=== PATIENT | female | born 1950 | race Caucasian/White ===

== ENCOUNTER 2019-12-09 14:15 | Outpatient (CLI) | payer MEDICARE, SELFPAY ==
--- NOTE | ~2019-12-09 | MM_ITS ---
EXAMINATION: MM screening corrina BI w karen HISTORY: Screening mammogram, family history of breast cancer in her mother. TECHNIQUE: Craniocaudal and mediolateral oblique 3-D tomosynthesis images were obtained and synthetic 2-D images were generated. CAD analysis was submitted and interpreted. COMPARISON: 12/13/2018, 12/10/2018, 11/13/2017 BREAST PARENCHYMAL COMPOSITION: There are scattered areas of fibroglandular density. FINDINGS: There is no evidence of suspicious mass, calcification, or architectural distortion to sugg est malignancy in either breast. There has been no suspicious interval change. IMPRESSION: 1. No mammographic evidence of malignancy. 2. Recommend routine screening mammography in one year. BI-RADS Category 1: Negative Reviewed, dictated and finalized at location A. [facility] [employer]
== END 2019-12-09 14:16 | disposition home or self-care (01) ==
LOC: ANHIMG 14:28
PROVIDERS: PCP Family Medicine; Visit Provider Nurse Practitioner Family
DX: Z12.31 Encounter for screening mammogram for malignant neoplasm of breast (principal)
CPT/HCPCS: 77063; 77067

== ENCOUNTER → 2021-02-21 11:06 | Outpatient (CLI) | payer MEDICARE, SELFPAY ==
--- NOTE | ~2021-02-21 | DEXA_ITS ---
Bone Density Report Name: Evelyn Courtney Age: 71 Sex: Female Ethnicity: White Date of : 1950 Indication: postmenopausal; screening for osteoporosis; hysterectomy; Referring Provider: Maryam Marcum Study: Bone densitometry was performed. Exam Date: February 21, 2021 Accession number: [id number] Bone Density: Region BMD T-score Z-score Classification AP Spine (L1-L4) 0.914 -1.2 0.8 Osteopenia Femoral Neck (Left) 0.706 -1.3 0.5 Osteopenia Total Hip (Left) 0.832 -0.9 0.6 Normal Femoral Neck (Right) 0.695 -1.4 0.4 Osteopenia Total Hip (Right) 0.822 -1.0 0.5 Normal Total Hip Mean 0.827 -1.0 0.6 Normal World Health Organization criteria for BMD impression classify patients as: Normal (T-score at or above -1.0), Osteopenia (T-score between -1.0 and -2.5), or Osteoporosis (T-score at or below -2.5). 10-year Fracture Risk(1): Major Osteoporotic Fracture 9.7% Hip Fracture 1.2% Reported Risk Factors: [place] (), Neck BMD=0.695, BMI=25.7 (1) FRAX(R) Version 3.08. Fracture probability calculated for an untreated patient. Fracture probability may be lower if the patient has received treatment. Previous Exams: Region Exam Age BMD T-score BMD Change BMD Change Date g/cm2 vs Baseline vs Previous AP Spine(L1-L4) 02/21/2021 71 0.914 -1.2 -0.033* -0.033* 01/10/2017 66 0.947 -0.9 Total Hip(Left) 02/21/2021 71 0.832 -0.9 -0.009 -0.009 01/10/2017 66 0.842 -0.8 Total Hip(Right) 02/21/2021 71 0.822 -1.0 -0.014 -0.014 01/10/2017 66 0.836 -0.9 *Denotes significance at 95% confidence level, LSC for AP Spine = 0.022 g/cm2, LSC for Total Hip = 0.027 g/cm2 Clinical Information Provided by Patient: Has used the following medications: Vitamin D, Calcium Has the following medical conditions: Hysterectomy Patient maximum height was 67 Menopause Age: 39 No regular weight bearing exercise Does not regularly consume dairy products Onset of menses at age 15 Number of children 3 Impression: The patient has low bone mass, based on the Right Femoral Neck T-score. The patient has an estimated ten-year risk of hip fracture of 1.2% and an estimated ten-year risk of major fracture of 9.7%, based on the WHO FRAX algorithm. The BMD for the AP Spine(L1-L4) decreased, changing by -0.033 since the last DXA exam. Discussion: BONE DENSITY IS LOW AT ONE OR MORE SKELETAL SITES. This p
--- NOTE | ~2021-02-21 | MM_ITS ---
EXAMINATION: MM screening corrina BI w karen HISTORY: Screening TECHNIQUE: Craniocaudal and mediolateral oblique 3-D tomosynthesis images were obtained and synthetic 2-D images were generated. CAD analysis was submitted and interpreted. COMPARISON: Comparison to multiple prior studies sequentially, with oldest reviewed study dated 12/2017. BREAST PARENCHYMAL COMPOSITION: The breasts are heterogenously dense, which may obscure small masses. FINDINGS: There is no evidence of suspicious mass, calcification, or architectural distortion to sugg est malignancy in either breast. There has been no suspicious interval change. IMPRESSION: 1. No mammographic evidence of malignancy. 2. Recommend routine screening mammography in one year. BI-RADS Category 1: Negative Reviewed, dictated and finalized at location A.
== END ==
PROVIDERS: PCP Family Medicine; Visit Provider Physician Assistant
DX: Z12.31 Encounter for screening mammogram for malignant neoplasm of breast (principal); Z78.0 Asymptomatic menopausal state; M85.88 Other specified disorders of bone density and structure, other site; M85.852 Other specified disorders of bone density and structure, left thigh; M85.851 Other specified disorders of bone density and structure, right thigh
CPT/HCPCS: 77063; 77067; 77080

== ENCOUNTER 2022-04-08 10:30 | Outpatient (CLI) | payer MEDICARE, SELFPAY ==
--- NOTE | ~2022-04-08 | MM_ITS ---
EXAMINATION: MM screening corrina BI w kaern HISTORY: Screening TECHNIQUE: Craniocaudal and mediolateral oblique 3-D tomosynthesis images were obtained and synthetic 2-D images were generated. CAD analysis was submitted and interpreted. COMPARISON: Comparison to multiple prior studies sequentially, with oldest reviewed study dated 12/2017. BREAST PARENCHYMAL COMPOSITION: The breasts are heterogenously dense, which may obscure small masses FINDINGS: There are new focal asymmetries in the upper outer quadrant of the right breast. The left b reast is stable without evidence for malignancy. IMPRESSION: 1. Developing right breast asymmetries, upper outer quadrant. 2. Additional mammographic views and possible breast ultrasound are recommended. BI-RADS Category 0: Incomplete: Needs additional imaging evaluation. Reviewed, dictated and finalized at location A. IMPRESSION: 1. Developing right breast asymmetries, upper outer quadrant. 2. Additional mammographic views and possible breast ultrasound are recommended . BI-RADS Category 0: Incomplete: Needs additional imaging evaluation.
== END 2022-04-08 10:31 | disposition home or self-care (01) ==
LOC: ANHIMG 10:34
PROVIDERS: PCP Family Medicine; Visit Provider Family Medicine
DX: Z12.31 Encounter for screening mammogram for malignant neoplasm of breast (principal); R92.8 Other abnormal and inconclusive findings on diagnostic imaging of breast
CPT/HCPCS: 77063; 77067

== ENCOUNTER → 2022-05-22 09:11 | Outpatient (CLI) | payer MEDICARE, SELFPAY ==
--- NOTE | ~2022-05-22 | MM_ITS ---
EXAMINATION: MM diagnostic corrina RT w karen HISTORY: Right breast asymmetries on screening mammogram TECHNIQUE: Additional 3-D tomosynthesis images of the right breast were performed and synthetic 2-D i mages were generated. CAD analysis was submitted and interpreted. COMPARISON: 04/08/2022, 02/21/2021, 12/09/2019 BREAST PARENCHYMAL COMPOSITION: The breast is heterogeneously dense, which may obscure small masses. FINDINGS: There is a return to baseline fibroglandular appearance with spot compression of the right breast in the area questioned on screening mammogram. IMPRESSION: 1. No mammographic evidence of malignancy. 2. Recommend routine screening mammography in one year. BI-RADS Category 1: Negative Reviewed, dictated and finalized at location A.
== END ==
PROVIDERS: PCP Family Medicine; Visit Provider Family Medicine
DX: R92.8 Other abnormal and inconclusive findings on diagnostic imaging of breast (principal)
CPT/HCPCS: 77061; 77065; G0279

== ENCOUNTER 2023-04-12 08:29 | Outpatient (CLI) | payer MEDICARE, SELFPAY ==
--- NOTE | ~2023-04-12 | CT_ITS ---
Non-contrast CT scan of the Abdomen and Pelvis Clinical indication: Kidney stone Technique: 2.5 mm axial scans were obtained through the abdomen and pelvis without intravenous or or al contrast. Dose reduction technique was used on this scan by utilizing automated exposure control a nd iterative reconstruction technique. The dose-length product (DLP) was 203.74 mGy-cm. Findings: Images through the lung bases reveal no abnormalities. There is a 4.5 mm stone at the proximal right ureter, with mild right hydronephrosis. Probable left r enal parapelvic cyst rather than hydronephrosis. No left renal or left ureteral stones seen. The liver, spleen, pancreas, and adrenals appear normal. Calcified gallstones are present. There is n o aortic aneurysm. There is no evidence of bowel obstruction. Images through the pelvis were performed. There is no evidence of ascites or lymphadenopathy. Urinary bladder unremarkable. No pelvic mass identified. Impression: 4.5 mm proximal right ureteral stone with mild right hydronephrosis. Probable left renal parapelvic cyst rather than hydronephrosis. Cholelithiasis. Reviewed, dictated and finalized at [facility]. Impression: 4.5 mm proximal right ureteral stone with mild right hydronephrosis. Probable left renal parapelvic cyst rather than hydronephrosis. Cholelithiasis.
== END 2023-04-12 08:30 | disposition home or self-care (01) ==
PROVIDERS: PCP Family Medicine; Visit Provider Urology
DX: N13.2 Hydronephrosis with renal and ureteral calculous obstruction (principal); K80.20 Calculus of gallbladder without cholecystitis without obstruction
CPT/HCPCS: 74176

== ENCOUNTER → 2023-04-26 15:03 | Outpatient (CLI) | payer MEDICARE, SELFPAY ==
--- NOTE | ~2023-04-26 | US_ITS ---
US retroperitoneal comp 04/26/2023 15:26 Procedure: Realtime transabdominal ultrasound of the kidneys and bladder. Indication: Right ureteral stone Comparison: CT dated 04/12/2023 Findings: There are bilateral renal cysts, largest on the right measuring 1.8 cm in largest on the le ft measuring 2.7 cm. There is mild bilateral hydronephrosis. No solid masses. Bladder is unremarkable . The right kidney measures 10 cm and left kidney measures 10.4 cm. Bladder within normal limits. Impression: 1: Mild bilateral hydronephrosis. 2: Bilateral renal cysts. Reviewed, dictated and finalized at location [] Impression: 1: Mild bilateral hydronephrosis. 2: Bilateral renal cysts.
--- NOTE | ~2023-04-26 | XR_ITS ---
EXAMINATION: XR abdomen/kub 1V INDICATION: Right ureteral stone TECHNIQUE: Supine views of the abdomen were obtained on 2 radiographs. COMPARISON: 04/17/2023; CT, 04/12/2023 FINDINGS: A gallstone projects over the right kidney upper pole. No definite urinary tract calculi ar e identified. The proximal right ureteral stone seen on recent CT is not identified. There are phlebo liths of the pelvis. The bowel gas pattern is normal. The visualized lung bases are clear. IMPRESSION: 1. No urolithiasis identified. Reviewed, dictated and finalized at location A.
== END ==
PROVIDERS: PCP Family Medicine; Visit Provider Urology
DX: N20.1 Calculus of ureter (principal); N28.1 Cyst of kidney, acquired
CPT/HCPCS: 74018; 76770

== ENCOUNTER → 2023-05-11 09:37 | Outpatient (CLI) | payer MEDICARE, SELFPAY ==
--- NOTE | ~2023-05-11 | XR_ITS ---
EXAMINATION: XR abdomen/kub 1V INDICATION: Right renal stone TECHNIQUE: Supine views of the abdomen were obtained on 2 radiographs. COMPARISON: 04/26/2023; CT, 04/12/2023 FINDINGS: A gallstone is again seen projecting over the right kidney upper pole. No definite urolithi asis is identified. There are phleboliths of the pelvis. The bowel gas pattern is normal. The visuali zed lung bases are clear. IMPRESSION: 1. No urolithiasis identified. Reviewed, dictated and finalized at location B.
== END ==
PROVIDERS: PCP Family Medicine; Visit Provider Urology
DX: N20.0 Calculus of kidney (principal)
CPT/HCPCS: 74018

== ENCOUNTER 2023-05-18 09:43 | Outpatient (CLI) | payer MEDICARE, SELFPAY ==
--- NOTE | ~2023-05-18 | MM_ITS ---
EXAMINATION: MM screening corrina BI w karen HISTORY: Screening mammogram, family history of breast cancer in her mother. TECHNIQUE: Craniocaudal and mediolateral oblique 3-D tomosynthesis images were obtained and synthetic 2-D images were generated. CAD analysis was submitted and interpreted. COMPARISON: 05/22/2022, 04/08/2022, 02/21/2021, 12/09/2019 BREAST PARENCHYMAL COMPOSITION: The breasts are heterogeneously dense, which may obscure small masses . FINDINGS: No suspicious mass, calcification, or architectural distortion are identified in either viola ast to suggest malignancy. There has been no suspicious interval change. IMPRESSION: 1. No mammographic evidence of malignancy. 2. Recommend routine screening mammography in one year. BI-RADS Category 1: Negative Reviewed, dictated and finalized at location A.
--- NOTE | ~2023-05-18 | DEXA_ITS ---
Bone Density Report Name: ELENA PIERCE Age: 73 Sex: Female Ethnicity: White Date of : 1950 Indication: postmenopausal; screening for osteoporosis; height loss; cancer; hysterectomy; Referring Provider: VALENTIN DENISE Study: Bone densitometry was performed. Exam Date: May 18, 2023 Accession number: [id number] Bone Density: Region BMD T-score Z-score Classification AP Spine(L1-L4) 0.919 -1.2 1.0 Osteopenia Femoral Neck (Left) 0.698 -1.4 0.5 Osteopenia Total Hip (Left) 0.852 -0.7 0.8 Normal Femoral Neck (Right) 0.668 -1.6 0.2 Osteopenia Total Hip (Right) 0.853 -0.7 0.8 Normal Total Hip Mean 0.852 -0.7 0.8 Normal World Health Organization criteria for BMD impression classify patients as: Normal (T-score at or above -1.0), Osteopenia (T-score between -1.0 and -2.5), or Osteoporosis (T-score at or below -2.5). 10-year Fracture Risk(1): Major Osteoporotic Fracture 11% Hip Fracture 1.8% Reported Risk Factors: [place] (), Neck BMD=0.668, BMI=24.9 (1) FRAX(R) Version 3.08. Fracture probability calculated for an untreated patient. Fracture probability may be lower if the patient has received treatment. Clinical Information Provided by Patient: Has used the following medications: Vitamin D Has the following medical conditions: Cancer, Hysterectomy Patient maximum height was 66.5 Menopause Age: 39 Onset of menses at age 15 Number of children 3 Impression: The patient has low bone mass, based on the Right Femoral Neck T-score. The patient has an estimated ten-year risk of hip fracture of 1.8% and an estimated ten-year risk of major fracture of 11%, based on the WHO FRAX algorithm. Discussion: BONE DENSITY IS LOW AT ONE OR MORE SKELETAL SITES. This patient's lowest T-score is low at one or more skeletal sites. It meets the World Health Organization's (WHO) criteria for ?low bone mass? (T-score between -1.0 and -2.5). The patient's 10-year risk of fracture as calculated by FRAX is less than the threshold where pharmacological therapy is recommended by the National Osteoporosis Foundation (NOF). However, all treatment decisions require clinical judgment and consideration of individual patient factors, including patient preferences, comorbidities, previous drug use, risk factors not captured in the FRAX model (e.g., frailty, falls, vitamin D deficiency, increased bone turnover, interval significant decline in bone density) and possible under or overestimation of fracture risk by FRAX. The patient should follow a healthful lifestyle (good nutrition with adequate calcium and vitamin D, and appropriate weight-bearing exercise). Follow-Up: Consider repeating this study in 2 to 3 years to reassess this patient's status, or sooner if there is some new clinical indication
== END 2023-05-18 09:44 | disposition home or self-care (01) ==
PROVIDERS: PCP Family Medicine; Visit Provider Family Medicine
DX: Z12.31 Encounter for screening mammogram for malignant neoplasm of breast (principal); Z78.0 Asymptomatic menopausal state; M85.88 Other specified disorders of bone density and structure, other site; M85.852 Other specified disorders of bone density and structure, left thigh; M85.851 Other specified disorders of bone density and structure, right thigh
CPT/HCPCS: 77063; 77067; 77080

== ENCOUNTER 2023-05-22 08:22 | Outpatient (CLI) | payer MEDICARE, SELFPAY ==
--- NOTE | 2023-05-22 08:32 | ECG_ITS ---
Measurements Intervals Jayess Rate: 73 P: 27 NE: 164 QRS: 36 QRSD: 63 T: 10 QT: 369 QTc: 408 Interpretive Statements SINUS RHYTHM DELAYED PRECORDIAL R/S TRANSITION BORDERLINE T WAVE ABNORMALITY- INFERIOR LEADS BASELINE ARTIFACT- I, II, III, AVR, AVL, AVF, V3-V6 BORDERLINE ECG NO PREVIOUS ECG AVAILABLE FOR COMPARISON Electronically Signed On 05-22-2023 10:45:30 CDT by Marcelo Martinez D.O.
[2023-05-22 09:13] LABS: Prothrombin Time 14.2 Seconds (11.1-14.7)
[2023-05-22 09:14] LABS: Partial Thromboplastin Time 38.7 SECONDS (22.3-36.8)
== END 2023-05-22 08:23 | disposition home or self-care (01) ==
LOC: ANHSURGERY 08:28
PROVIDERS: PCP Family Medicine; Visit Provider Urology
DX: N20.0 Calculus of kidney (principal); Z01.818 Encounter for other preprocedural examination; R94.31 Abnormal electrocardiogram [ECG] [EKG]
CPT/HCPCS: 36415; 85610; 85730; 87086; 93005

== ENCOUNTER 2023-05-25 03:49 | Day surgery (SDC) | payer MEDICARE, SELFPAY ==
[2023-05-21 15:29] VITALS: BMI 23.8
--- NOTE | 2023-05-21 15:47 | PC.NURSE ---
Report to the Outpatient Waiting Room, entrance under the green pavilion located off [facility], at time __10:00AM on date _05/25/23 . Planned Procedure Time: __12:00PM . Time changes happen often and if your time is changed the preop area will call you the afternoon before. - You and your visitor will be asked to self-screen and do not enter if you have any COVID symptoms. - A mask is optional within the hospital at this time. Patients may have clear liquids (water, carbonated beverages, clear teas, apple juice) until 3 hours prior to surgery with a maximum of 20 ounces. - No food from midnight until time of surgery Take the following medications with a SIP of water the morning of surgery: ___GABAPENTIN NEEDED DO NOT STOP ANY OF YOUR OTHER PRESCRIPTION MEDICATIONS PRIOR TO SURGERY ?EXCEPT THE FOLLOWING Medications to discontinue per physician __HOLD ELIQUIS 2 DAYS PRE-OP PER DR ADAME & MACHINE PECAN GATHERER(PER PATIENT)- LAST DOSE 05/22/23 EVENING DOSE. HOLD ALL VITAMINS/SUPPLEMENTS 7 DAYS PRE-OP PER DR ADAME(PER PATIENT) - LAST DOSE 05/18/23 Please no make-up, nail sa[place]ian, hairspray, perfume, deodorant, or body powder the day of surgery. No jewelry (including any body piercings) or valuables the day of surgery, leave them at home. Please take a shower or bath the night before, or the morning of, surgery with an antibacterial soap. Wear comfortable, loose fitting clothing. Children are encouraged to wear pajamas. - Jewelry must be removed prior to entering the operating room. Rings and piercings that are not removed may be cut off. - The hospital will not accept responsibility for valuables. - Please leave all valuables, including medications, at home the day of surgery. If you are going home after surgery, a licensed pharmacy delivery driver must drive you home. - NO public transportation without another adult if you receive anesthesia. - We recommend that an adult stay with you for 24 hours following discharge. - We also recommend that you do not drive, make important decision, drink alcoholic beverages, or take any drugs that were not prescribed by your health care provider for at least 24 hours after your discharge time. Follow any additional instructions given to you from your surgeon. If you or anyone in your household have experienced Covid symptoms in the past week, please notify your surgeon or the nurse liaison at the phone number below for possible testing. Telephone instructions given to __PATIENT and asked if any additional questions and then verbalized understanding. Patient advised to call surgeon office or pre surgery nurse liaison [phone] if any additional questions.
--- NOTE | ~2023-05-25 | XR_ITS ---
EXAMINATION: XR abdomen/kub 1V INDICATION: Lithotripsy planning, history of nephrolithiasis TECHNIQUE: Supine view of the abdomen is obtained. COMPARISON: 05/11/2023 FINDINGS: A 4 mm stone projects in the right mid kidney. Cholelithiasis is noted. There are phlebolit hs of the pelvis. The bowel gas pattern is normal. IMPRESSION: 1. 4 mm right kidney stone. Reviewed, dictated and finalized at location B. IMPRESSION: 1. 4 mm right kidney stone.
--- NOTE | 2023-05-25 06:35 | WPDHPUPDATE1 ---
History and Physical Update Update Date/Time: 05/25/23 06:35 History and Physical has been reviewed, including an updated exam of the patient. There are NO changes in the patient's condition. Risks, benefits, and alternatives have been discussed and questions answered. Patient agrees to proceed with procedure.
--- NOTE | 2023-05-25 07:43 | WPDANESEPPF ---
Anes - Initial Pre Proc Eval Procedure: Operation Date: 05/25/23 12:00 Proposed Procedures p Right Extracorporeal Shock Wave Lithotripsy - Jose Enrique Prather MD Date/Time: 05/25/23 07:43 Surgeon: Jose Enrique Prather MD Pre Op Diagnosis: Rt Renal Stone Patient Data Age: 73 Gender: F Height: 1.69 m Weight: 68 kg Allergies Allergy/AdvReac Type Severity Reaction Status Date / Time No Known Allergies Allergy Verified 05/25/23 10:39 Home Medications Medication Instructions Recorded Confirmed Type magnesium 200 mg tablet 200 mg PO DAILY PRN Muscle Pain 09/30/20 05/25/23 History apixaban 5 mg tablet (Eliquis) 5 mg PO BID 03/07/22 05/25/23 History cholecalciferol (vitamin D3) 10 10 mcg PO DAILY 04/02/23 05/25/23 History mcg (400 unit) capsule rosuvastatin 5 mg tablet See Rx Instructions .Route 04/12/23 05/25/23 Rx .COMPLEX #90 tabs gabapentin 100 mg capsule 100 mg PO TID PRN Pain 05/21/23 05/25/23 History prednisolone acetate 1 % eye 1 drp RIGHT EYE TID 05/21/23 05/25/23 History drops,suspension Patient hx anesthesia problems: none Family hx anesthesia problems: none Results Review: All pre-operative results and documents have been reviewed as part of the pre-operative evaluation. [facility] Past Medical History Medical History Acid reflux Angina pectoris with documented spasm Anxiety Atrial fib/flutter, transient Atrial fibrillation with normal ventricular rate CAD (coronary artery disease) Disorder of left rotator cuff Hyperlipidemia Nephrolithiasis On statin therapy Osteopenia Stress at work Surgical History Surgical History Hx of hysterectomy Family History Family History Mother Hypertension Cerebrovascular accident Family history of malignant neoplasm of breast in first degree relative Patient's mother is Father Family history of lung cancer Patient's father is Other Asthma Depression Family history of arthritis Family history of heart disease in male family member before age 55 Social History Social History Social History: Smoking status: Never smoker Second hand tobacco smoke exposure: No Alcohol intake: current Alcohol use details: rarely Substance use: never Substance use type: does not use Lack of Transportation: No Lack of Food: Never True Current Housing: I Have Housing Concerned About Future Housing: No Difficulty Paying Gas/Electric Bills: No Difficulty Paying for Meds: No Currently Unemployed: No Education: High School Diploma/GED Difficulty w/ Childcare or Family Care: No Living arrangements: with family Additional living arrangements comments: [place] Occupation/Education: occupation Gender identity (if verbalized by the patient): Female Sexual Orientation (if Verbalized by the Patient): Straight or Heterosexual Spiritual care concerns: No Anes - Eval Final PreProcedure Day of Procedure 05/25/23 07:43 Patient weight: normal Heart: regular rate and rhythm Lungs: clear to auscultation and normal air movement Airway: Mallampati scale class II Neurological: alert and oriented Last oral intake: >/= 8 hours ASA classification: III Emergent: no Anesthetic plan: proceed Anesthesia type and monitoring: general LMA Results Review: All pre-operative results and documents have been reviewed as part of the pre-operative evaluation. Informed Consent: The patient's anesthetic plan and its attendant risks and benefits were discussed with the patient/family/POA. Questions were solicited and answers provided to the satisfaction of the patient/family/POA.
[2023-05-25 10:19] VITALS: BP 101/62; PULSE 78; RESP 16; TEMP 36.6; O2SAT 97
[2023-05-25] MEDS: LACTATED RINGERS 1,000 ML 30 ML IV CONT (10:56)
[2023-05-25 11:12] LABS: Partial Thromboplastin Time 32.5 SECONDS (22.3-36.8)
--- NOTE | 2023-05-25 12:26 | W.PM.PROC2 ---
Procedure Note - Detailed Date of Procedure 05/25/23 Pre-op Diagnosis Rt Renal Stone Post-op Diagnosis Same Procedure Performed Right ESWL Surgeon Jose Enrique Prather MD Anesthesia General Description of Procedure The patient was brought to the operative suite where [] was placed in the supine position on the Dornier lithotripsy table. The focal point of the lithotripter was placed at a 4-5mm right mid-pole calculus. A total of 2500 shocks were delivered at a power setting of 4. There appeared to be good fragmentation of the stone. The patient tolerated the procedure well and was taken to the recovery room in good condition. Drains No Packing No Pathology None sent Complications No immediate complications Condition Stable Disposition PACU
[2023-05-25 12:47] VITALS: BP 109/64; PULSE 57; RESP 16; TEMP 36.3; O2SAT 98
[2023-05-25 13:00] VITALS: BP 137/74; PULSE 56; RESP 14; O2SAT 100
[2023-05-25 13:15] VITALS: BP 129/63; PULSE 55; RESP 13; O2SAT 100
[2023-05-25 13:18] VITALS: BP 135/76; PULSE 56; RESP 14
[2023-05-25] MEDS: oxyCODONE HCL (*CRX) 5 MG TAB IR PO (13:35)
[2023-05-25 13:45] VITALS: BP 130/70; PULSE 55; RESP 14
== END 2023-05-25 14:10 | disposition home or self-care (01) ==
PROVIDERS: PCP Family Medicine; Visit Provider Urology
PROC: (CPT 50590; principal; 2023-05-25 12:00)
DX: N20.0 Calculus of kidney (principal); I48.91 Unspecified atrial fibrillation
CPT/HCPCS: 50590; 36415; 74018; 85610; 85730; 87086; 93005; A9270; J1100; J2250; J2405; J2704; J3010; J7120

== ENCOUNTER → 2023-07-19 11:19 | Outpatient (CLI) | payer MEDICARE, SELFPAY ==
--- NOTE | ~2023-07-19 | XR_ITS ---
Supine and upright views of the abdomen Clinical history: Renal stone COMPARISON: 05/25/2023 Findings: Bowel gas pattern is nonspecific. No evidence for obstruction or free air. Stable calcified gallstone in the right upper quadrant. Stable calcified pelvic phleboliths. Osseous structures are i ntact. Impression: Cholelithiasis. Previously noted right renal stone is not clearly seen on the current exam. Reviewed, dictated and finalized at location . Impression: Cholelithiasis. Previously noted right renal stone is not clearly seen on the current exam.
== END ==
PROVIDERS: PCP Family Medicine; Visit Provider Urology
DX: N20.0 Calculus of kidney (principal); K80.20 Calculus of gallbladder without cholecystitis without obstruction
CPT/HCPCS: 74018

== ENCOUNTER 2023-09-07 07:46 | Outpatient (CLI) | payer MEDICARE, SELFPAY ==
[2023-09-07 08:17] LABS: Basophils Percent Auto 0.4 % (0.2-1.2); Eosinophils Absolute Auto 0.3 K/mm3 (0-0.3); Hematocrit 40.4 % (37.0-47.0); Hemoglobin 13.1 g/dL (12.0-15.0); Immature Granulocyte Absolute 0.01 K/mm3 (0.00-0.031); Immature Granulocyte Percent A 0.2 % (0-0.5); Lymphocytes Absolute Auto 1.36 K/mm3 (0.9-3.2); Lymphocytes Percent Auto 30.2 % (18.3-44.2); Mean Corpuscular HGB Conc 32.4 g/dl (32-36); Mean Corpuscular Hemoglobin 29.6 pg (26-34); Mean Corpuscular Volume 91.4 fl (80-100); Mean Platelet Volume 10.4 fl (7.4-10.4); Monocytes Absolute Auto 0.5 K/mm3 (0.1-0.6); Neutrophils Absolute Auto 2.4 K/mm3 (1.3-6.7); Neutrophils Percent Auto 53.2 % (45.5-73.1); Platelet Count Result 169 k/mm3 (150-375); Red Blood Count 4.42 M/mm3 (4.2-5.4); Red Cell Distribution Width 11.9 % (11.5-14.5); White Blood Count 4.5 K/mm3 (4.5-10.0)
[2023-09-07 08:25] LABS: Alanine Aminotransferase 19 U/L (6-35); Alkaline Phosphatase 45 U/L (38-126); Amylase 112 U/L (30-110); Anion Gap 4 mmol/L (8-16); Aspartate Amino Transferase 25 U/L (14-36); Bilirubin,Total 0.5 mg/dL (0.2-1.3); Blood Urea Nitrogen 15 mg/dL (7-17); Calcium 9.2 mg/dL (8.4-10.2); Carbon Dioxide 32 mmol/L (22-30); Chloride 104 mmol/L (98-107); Estimated Glomerular Filt Rate > 60; Glucose 92 mg/dL (65-110); Lipase 512 U/L (23-300); Potassium 4.8 mmol/L (3.4-5.0); Sodium 140 mmol/L (137-145)
== END 2023-09-07 07:47 | disposition home or self-care (01) ==
LOC: ANHSURGERY 07:50
PROVIDERS: PCP Family Medicine; Visit Provider Surgery
DX: K80.20 Calculus of gallbladder without cholecystitis without obstruction (principal); Z01.818 Encounter for other preprocedural examination
CPT/HCPCS: 36415; 80053; 82150; 83690; 85025

== ENCOUNTER 2023-09-12 02:38 | Day surgery (SDC) | payer MEDICARE, SELFPAY ==
[2023-09-04 14:55] VITALS: BMI 23.6
--- NOTE | 2023-09-04 15:05 | PC.NURSE ---
Report to the Outpatient Waiting Room, entrance under the green pavilion located off [facility], at time _1130_ on date _09-12-2023_. Planned Procedure Time: _130pm_. Time changes happen often and if your time is changed the preop area will call you the afternoon before. - You and your visitor will be asked to self-screen and do not enter if you have any COVID symptoms. - A mask is optional within the hospital at this time. Patients may have clear liquids (water, carbonated beverages, clear teas, apple juice) until 3 hours prior to surgery with a maximum of 20 ounces. - No food from midnight until time of surgery Take the following medications with a SIP of water the morning of surgery: ___None DO NOT STOP ANY OF YOUR OTHER PRESCRIPTION MEDICATIONS PRIOR TO SURGERY ?EXCEPT THE FOLLOWING Medications to discontinue per physician ____Vitamins and fish oil Date to take last [id number] Says is stopping Eliquis 4 days before surgery. Please no make-up, nail dominican, hairspray, perfume, deodorant, or body powder the day of surgery. No jewelry (including any body piercings) or valuables the day of surgery, leave them at home. Please take a shower or bath the night before, or the morning of, surgery with an antibacterial soap. Wear comfortable, loose fitting clothing. - Jewelry must be removed prior to entering the operating room. Rings and piercings that are not removed may be cut off. - The hospital will not accept responsibility for valuables. - Please leave all valuables, including medications, at home the day of surgery. If you are going home after surgery, a licensed local delivery truck driver must drive you home. - NO public transportation without another adult if you receive anesthesia. - We recommend that an adult stay with you for 24 hours following discharge. - We also recommend that you do not drive, make important decision, drink alcoholic beverages, or take any drugs that were not prescribed by your health care provider for at least 24 hours after your discharge time. Follow any additional instructions given to you from your surgeon. If you or anyone in your household have experienced Covid symptoms in the past week, please notify your surgeon or the nurse liaison at the phone number below for possible testing. Telephone instructions given to __Patient__and asked if any additional questions and then verbalized understanding. Patient advised to call surgeon office or pre surgery nurse liaison [phone] if any additional questions.
[2023-09-12] VITALS (8 sets, daily range): BP systolic 103–136; BP diastolic 57–66; PULSE 58–74; RESP 14–20; TEMP 36.6–36.7; O2SAT 100
[2023-09-12] MEDS: KETOROLAC 15 MG/ML VIAL (*BKC) IV PUSH (12:30)
[2023-09-12] MEDS: ACETAMINOPHEN 500 MG TABLET 1000 MG PO (12:30)
--- NOTE | 2023-09-12 12:31 | WPDHPUPDATE1 ---
History and Physical Update Update Date/Time: 09/12/23 12:31 History and Physical has been reviewed, including an updated exam of the patient. There are NO changes in the patient's condition. Risks, benefits, and alternatives have been discussed and questions answered. Patient agrees to proceed with procedure.
[2023-09-12 12:39] LABS: Lipase 141 U/L (23-300)
--- NOTE | 2023-09-12 12:40 | WPDANESEPPF ---
Anes - Initial Pre Proc Eval Procedure: Operation Date: 09/12/23 13:30 Proposed Procedures p Laparoscopic Cholecystectomy, Possible Open - Shan Green DO Date/Time: 09/12/23 12:40 Surgeon: Shan Green DO Pre Op Diagnosis: symptomatic cholelithiasis Patient Data Age: 73 Gender: F Height: 1.69 m Weight: 67.3 kg Allergies Allergy/AdvReac Type Severity Reaction Status Date / Time No Known Allergies Allergy Verified 09/12/23 12:42 Home Medications Medication Instructions Recorded Confirmed Type apixaban 5 mg tablet (Eliquis) 5 mg PO BID 03/07/22 09/12/23 History cholecalciferol (vitamin D3) 10 10 mcg PO DAILY 04/02/23 09/04/23 History mcg (400 unit) capsule rosuvastatin 5 mg tablet See Rx Instructions .Route 04/12/23 09/04/23 Rx .COMPLEX #90 tabs gabapentin 100 mg capsule 100 mg PO TID PRN Pain 05/21/23 09/04/23 History calcium carbonate 600 mg calcium 600 mg PO DAILY 08/24/23 09/04/23 History (1,500 mg) tablet omega 3 600 mg-dha 216 mg-epa 324 1 cap PO DAILY 08/24/23 09/04/23 History mg-fish oil 1,200 mg capsule,del rel Laboratory Tests 09/12/23 12:17 Lipase 141 U/L (23-300) Patient hx anesthesia problems: none Family hx anesthesia problems: none Results Review: All pre-operative results and documents have been reviewed as part of the pre-operative evaluation. FORMERLY [facility], [facility]1983 Past Medical History Medical History Acid reflux Angina pectoris with documented spasm Anxiety Atrial fib/flutter, transient Atrial fibrillation with normal ventricular rate CAD (coronary artery disease) Disorder of left rotator cuff Hyperlipidemia Nephrolithiasis On statin therapy Osteopenia Stress at work Surgical History Surgical History H/O heart surgery History of lithotripsy Hx of hysterectomy Family History Family History Mother Hypertension Cerebrovascular accident Family history of malignant neoplasm of breast in first degree relative Patient's mother is Father Family history of lung cancer Patient's father is Other Asthma Depression Family history of arthritis Family history of heart disease in male family member before age 55 Social History Social History Social History: Smoking status: Never smoker Second hand tobacco smoke exposure: No Alcohol intake: current Alcohol use details: rarely Substance use: never Substance use type: does not use Lack of Transportation: No Lack of Food: Never True Current Housing: I Have Housing Concerned About Future Housing: No Difficulty Paying Gas/Electric Bills: No Difficulty Paying for Meds: No Currently Unemployed: No Education: High School Diploma/GED Difficulty w/ Childcare or Family Care: No Living arrangements: with family Additional living arrangements comments: [facility] Occupation/Education: occupation Gender identity (if verbalized by the patient): Female Sexual Orientation (if Verbalized by the Patient): Straight or Heterosexual Spiritual care concerns: No Anes - Eval Final PreProcedure Day of Procedure 09/12/23 12:40 Patient weight: normal Heart: regular rate and rhythm Lungs: clear to auscultation Airway: Mallampati scale class II Neurological: alert and oriented Last oral intake: >/= 8 hours ASA classification: III Emergent: no Anesthetic plan: proceed Anesthesia type and monitoring: general ETT and standard monitoring Results Review: All pre-operative results and documents have been reviewed as part of the pre-operative evaluation. Informed Consent: The patient's anesthetic plan and its attendant risks and benefits were discussed with the patient/family/POA. Questions were solicited and answers provided to the satisfaction of the patient/f
[2023-09-12] MEDS: ceFAZolin 2 GM/D5W 50 ML 2 GM/50 ML BAG IVPB (12:55)
[2023-09-12] MEDS: BUPIVACAINE/EPINEPHRINE 0.5% 50 ML VIAL INFILTRATE (13:20)
--- NOTE | 2023-09-12 13:41 | W.PM.PROC2 ---
Procedure Note - Detailed Date of Procedure 09/12/23 Pre-op Diagnosis symptomatic cholelithiasis Post-op Diagnosis Same Procedure Performed Laparoscopic Cholecystectomy Surgeon Shan Green, DO Anesthesia General and Local (0.5% bupivacaine) Indications This is a 73-year-old woman who presents with intermittent right upper quadrant pain. She has had prior imaging for kidney stones and this has also shown evidence cholelithiasis. Her symptoms did appear to be more consistent with gallbladder attacks after eating heavier meals. Discussions were made with the patient about treatment options and decision was made to proceed with laparoscopic cholecystectomy, possible open. Findings Laparoscopic cholecystectomy was performed. The gallbladder contained at least 1 gallstone. The cystic duct appeared normal in size. No other significant findings were identified. The gallbladder was removed and sent to the lab for pathology. Description of Procedure Procedure as well as risks, benefits, and alternatives were discussed with patient. Written consent was obtained and placed in chart prior to procedure. The patient was brought back to surgical suite. Patient was placed in supine position on operating table. Time-out was done to confirm patient and procedure. Patient was then intubated by the anesthesia department. Abdomen was prepped and draped in sterile fashion using chlorhexidine prep. 0.5% bupivacaine with epinephrine was infiltrated at each site of incision. A 5 millimeter incision was made near the umbilicus, and a 5 millimeter Optiview trocar was advanced through the abdominal layers under direct visualization. Once inside the abdominal cavity, carbon dioxide was insufflated to create a pneumoperitoneum. The camera was inserted and the abdomen was inspected. No immediate abnormalities were identified. The patient was placed in reverse Trendelenburg position and rotated slightly to the left. An 11 millimeter incision was made in the subxiphoid region, and an 11 millimeter trocar was inserted under direct visualization. Two 5 millimeter incisions were made in the right upper quadrant, and two 5 millimeter trocars were inserted under direct visualization. The gallbladder was identified and grasped at the fundus and retracted superiorly. It was then grasped at the infundibulum retracted laterally. Careful dissection around the neck of the gallbladder was performed using blunt dissection with a [place] grasper and hook electrocautery. The cystic duct was identified, and a window was created behind it. The cystic artery was also identified and a window was created behind it. The critical view of safety was identified, visualizing the cystic duct running directly into the neck of the gallbladder, and the cystic artery running directly into the wall of the gallbladder. A 5 millimeter clip guide delegate was then used to place 2 clips proximally and 1 clip distally on both the cystic duct and cystic artery. They were then both transected using endoscopic scissors. Once safely away from the joceline hepatitis, the gallbladder was dissected free from the liver bed using hook electrocautery. Hemostasis was achieved along the way. The gallbladder was removed completely and then removed through the subxiphoid port. The liver bed was then inspected. Hemostasis appeared adequate, and our clips appeared secure. The area was gently irrigated with sterile saline. No other abnormalities were seen. The patient was flattened out in bed, and 1 final inspection was made around the abdominal cavity. The subxiphoid port was removed, and a Tyler Nain cone was used to approximate the fascia with an 0-Vicryl simple interrupted suture. The remaining ports were then removed under direct visualization, the camera was removed, and the pneumoperitoneum was released. The skin of the incisions was approximated using 4-0 Monocryl subcuticular sutures. Exofin glue was applied on to
[2023-09-12] MEDS: LACTATED RINGERS 1,000 ML 30 ML IV CONT ×2 (13:47→14:01)
[2023-09-12] MEDS: oxyCODONE HCL (*CRX) 5 MG TAB IR PO (14:52)
== END 2023-09-12 15:48 | disposition home or self-care (01) ==
PROVIDERS: PCP Family Medicine; Visit Provider Surgery
PROC: 0FT44ZZ Resection of Gallbladder, Percutaneous Endoscopic Approach (ICD-10-PCS; CPT 47562; principal; 2023-09-12 13:30)
DX: K80.20 Calculus of gallbladder without cholecystitis without obstruction (principal); K80.80 Other cholelithiasis without obstruction; F41.9 Anxiety disorder, unspecified; I48.91 Unspecified atrial fibrillation; I25.10 Atherosclerotic heart disease of native coronary artery without angina pectoris; E78.5 Hyperlipidemia, unspecified; M85.80 Other specified disorders of bone density and structure, unspecified site; Z79.01 Long term (current) use of anticoagulants; Z98.890 Other specified postprocedural states; Z80.3 Family history of malignant neoplasm of breast; Z80.1 Family history of malignant neoplasm of trachea, bronchus and lung; Z82.49 Family history of ischemic heart disease and other diseases of the circulatory system
CPT/HCPCS: 47562; 36415; 80053; 82150; 83690; 85025; 86850; 86900; 86901; 88304; A9270; J0690; J1100; J1885; J2405; J2704; J3010; J7030; J7120

== ENCOUNTER 2023-09-14 11:37 | Inpatient (IN) | payer MEDICARE, SELFPAY ==
[2023-09-14] VITALS (20 sets, daily range): BP systolic 117–149; BP diastolic 64–78; PULSE 64–80; RESP 13–24; TEMP 35.9–36.6; O2SAT 97–100
--- NOTE | ~2023-09-14 | MR_ITS ---
EXAMINATION: MR MRCP wo/w con/w 3D wo ind DATE: 09/15/2023 11:30 INDICATION: Pancreatitis status post cholecystectomy TECHNIQUE: Magnetic resonance imaging (MRI) of the abdomen was performed without and with intravenous contrast. Sequences included coronal T2-weighted SS-FSE ARC, coronal T2-weighted FS SS-FSE, coronal T2-weighted 2D FS FIESTA, Water:Coronal LAVA-Flex, sagittal T2-weighted SS-FSE ARC, axial SSFSE ARC, axial 3D DualEcho, axial DWI B=600, axial T1-weighted LAVA, FAT:Coronal LAVA-Flex, and coronal in and opposed phase LAVA-Flex. Thick-slab T2-weighted FRFSE-XL images were obtained for magnetic resonance cholangiopancreatography (MRCP). Maximum intensity projection 3-D reconstructions of the volumetric data were created by the technologist. Postcontrast sequences included a time course of axial T1-weig hted LAVA, FAT:Coronal LAVA-Flex, coronal in and opposed phase LAVA-Flex, and Water:Coronal LAVA-Flex . COMPARISON: CT, 09/14/2023 CONTRAST: Multihance, 13 cc FINDINGS: ABDOMEN MRI: The liver, spleen, and adrenal glands are normal. There are multiple peripelvic cysts of the kidneys. There are also multiple simple cysts of the kidneys, the largest of which measures 1.7 cm on the right. There is a 1.4 cm hemorrhagic cyst of the right mid kidney. The gallbladder is surgi linus absent. Pancreas divisum is noted. The pancreas is otherwise normal in appearance. There are no dilated loops of bowel. There are no pathologically enlarged abdominal lymph nodes. There is no abno rmal enhancement after contrast administration. ABDOMEN MRCP: The dilated common bile duct measures up to 8 mm. Pancreas divisum is noted. The dilate d pancreatic duct measures up to 6 mm. Nonobstructing stones are identified. IMPRESSION: 1. Dilated common bile duct and pancreatic duct without obstructing stone identified. Reviewed, dictated and finalized at location F. IMPRESSION: 1. Dilated common bile duct and pancreatic duct without obstructing stone ident ified.
--- NOTE | ~2023-09-14 | CT_ITS ---
EXAMINATION: CT abdomen pelvis w con DATE: 09/14/2023 14:19 INDICATION: Epigastric abdominal pain. Status post cholecystectomy on 09/12/2023. History of kidney st one. TECHNIQUE: Computed tomography (CT) of the abdomen and pelvis was performed with 100 CC Omnipaque 350 intravenous contrast. Automated exposure control and iterative reconstruction technique were employe d. Exam dose: 366.47 mGy-cm total exam DLP. COMPARISON: 07/19/2023 KUB 04/12/2023 CT abdomen pelvis FINDINGS: There is mild atelectasis at the lung bases Normal heart size. No pericardial or pleural effusion. Status post cholecystectomy. This likely accounts for mild prominence of the bile ducts. No hepatic space-occupying mass lesion. The pancreatic duct is dilated, measuring up to approximately 6 mm maximal diameter. Consider MRCP or ERCP as clinically appropriate. No peripancreatic fat stranding or fluid collection. No apparent pancreatic mass lesion or any pancreatic calcification is noted. Normal splenic size. Normal morphology of the adrenal glands. Occasional bilateral renal cysts, measuring up to 1.2 cm on the right and left. No urinary tract calculus or hydroureteronephrosis. The urinary bladder is unremarkable. Status post hysterectomy. Normal caliber of the abdominal aorta. No intraperitoneal or retroperitoneal or pelvic mass lesion or adenopathy or ascites. There are nondilated fluid containing small bowel segments with occasional air-fluid levels which may be due to mild adynamic ileus postoperatively, less likely enteritis. No bowel obstruction, bowel wall thickening, pneumatosis or intraperitoneal free air. Severe degenerative disc disease at L5-S1. No suspicious osteolytic or osteoblastic lesions are noted. IMPRESSION: Probable mild postoperative adynamic ileus Status post cholecystectomy 09/12/2023 The pancreatic duct is dilated, new since 04/12/2023. Consider ERCP or MRCP as clinically appropriate Reviewed, dictated and finalized at Location A. Reviewed, dictated and finalized at location B. IMPRESSION: Probable mild postoperative adynamic ileus Status post cholecystectomy 09/12/2023 The pancreatic duct is dilated, new since 04/12/2023. Consider ERCP or MRCP as cl inically appropriate
--- NOTE | 2023-09-14 12:10 | ED.ABDPAIN ---
HPI - Abdominal Pain General Chief Complaint: Abdominal Pain Stated Complaint: 2 days post gallblader removal with epigastric rochelle Time Seen by Provider: 09/14/23 12:01 History of Present Illness HPI narrative: Patient is a 73-year-old female who presents to the emergency department at this afternoon complaining of mid epigastric abdominal pain. Patient states that the pain started suddenly at 1030 this morning, approximately 20 minutes after she took her scheduled dose of oxycodone. Patient had a cholecystectomy performed here 2 days ago. She states that initially when the pain started it was a 10 out of 10 and now she rates it at a 3 out of 10. Patient does have a history of atrial fibrillation and is on Eliquis, she resumed it this morning after she was off of it for the past 5 days leading up to her cholecystectomy. She admits to feeling nauseous but denies any vomiting episodes. Patient has not had a bowel movement since the night before the surgery. Patient denies any chest pain, shortness of breath, dysuria, hematuria, diarrhea, melena, hematochezia, fevers or chills. She also denies any headaches, dizziness, lightheadedness, blurry visions, focal weakness, numbness and or tingling. There are no other modifying, alleviating, or precipitating factors at this time. Related Data Home Medications Medication Instructions Recorded Confirmed apixaban 5 mg tablet (Eliquis) 5 mg PO BID 03/07/22 09/14/23 cholecalciferol (vitamin D3) 10 10 mcg PO DAILY 04/02/23 09/14/23 mcg (400 unit) capsule gabapentin 100 mg capsule 100 mg PO TID PRN Pain 05/21/23 09/14/23 calcium carbonate 600 mg calcium 600 mg PO DAILY 08/24/23 09/14/23 (1,500 mg) tablet omega 3 600 mg-dha 216 mg-epa 324 1 cap PO DAILY 08/24/23 09/14/23 mg-fish oil 1,200 mg capsule,del rel Allergies Allergy/AdvReac Type Severity Reaction Status Date / Time No Known Allergies Allergy Verified 09/14/23 11:38 Review of Systems Review of Systems: All systems are reviewed and are negative unless stated otherwise in the HPI. [facility] Past Medical History Medical History Acid reflux Angina pectoris with documented spasm Anxiety Atrial fib/flutter, transient Atrial fibrillation with normal ventricular rate CAD (coronary artery disease) Disorder of left rotator cuff Hyperlipidemia Nephrolithiasis On statin therapy Osteopenia Stress at work Surgical History Surgical History H/O heart surgery History of lithotripsy Hx of hysterectomy Family History Family History Mother Hypertension Cerebrovascular accident Family history of malignant neoplasm of breast in first degree relative Patient's mother is Father Family history of lung cancer Patient's father is Other Asthma Depression Family history of arthritis Family history of heart disease in male family member before age 55 Social History Social History Social History: Smoking status: Never smoker Second hand tobacco smoke exposure: No Alcohol intake: current Alcohol use details: rarely Substance use: never Substance use type: does not use Lack of Transportation: No Lack of Food: Never True Current Housing: I Have Housing Concerned About Future Housing: No Difficulty Paying Gas/Electric Bills: No Difficulty Paying for Meds: No Currently Unemployed: No Education: High School Diploma/GED Difficulty w/ Childcare or Family Care: No Living arrangements: with family Additional living arrangements comments: [facility] Occupation/Education: occupation Gender identity (if verbalized by the patient): Female Sexual Orientation (if Verbalized by the Patient): Straight or Heterosexual Spiritual care concerns: No Exam Narrative: General: Alert, awake, afebrile, in n
[2023-09-14 12:24] LABS: Basophils Percent Auto 0.3 % (0.2-1.2); Eosinophils Percent Auto 0.6 % (0-4.4); Hematocrit 40.9 % (37.0-47.0); Hemoglobin 13.3 g/dL (12.0-15.0); Immature Granulocyte Absolute 0.02 K/mm3 (0.00-0.031); Immature Granulocyte Percent A 0.3 % (0-0.5); Lymphocytes Absolute Auto 1.18 K/mm3 (0.9-3.2); Lymphocytes Percent Auto 19.1 % (18.3-44.2); Mean Corpuscular HGB Conc 32.5 g/dl (32-36); Mean Corpuscular Hemoglobin 29.7 pg (26-34); Mean Corpuscular Volume 91.3 fl (80-100); Mean Platelet Volume 10.7 fl (7.4-10.4); Monocytes Absolute Auto 0.6 K/mm3 (0.1-0.6); Neutrophils Absolute Auto 4.4 K/mm3 (1.3-6.7); Neutrophils Percent Auto 70.7 % (45.5-73.1); Platelet Count Result 178 k/mm3 (150-375); Red Blood Count 4.48 M/mm3 (4.2-5.4); Red Cell Distribution Width 12.1 % (11.5-14.5); White Blood Count 6.2 K/mm3 (4.5-10.0)
--- NOTE | 2023-09-14 12:36 | ECG_ITS ---
Measurements Intervals Tyler Rate: 66 P: 0 CA: 152 QRS: 8 QRSD: 79 T: 13 QT: 410 QTc: 430 Interpretive Statements SINUS RHYTHM DELAYED PRECORDIAL R/S TRANSITION LOW QRS VOLTAGE IN PRECORDIAL LEADS BORDERLINE T WAVE ABNORMALITY- ANTERIOR LEADS BORDERLINE ECG COMPARED TO ECG 05/22/2023 08:49:09 NO SIGNIFICANT CHANGES Electronically Signed On 09-14-2023 13:53:47 CDT by Marcelo Martinez D.O.
[2023-09-14 12:50] LABS: Troponin I < 0.012 ng/mL (0.000-0.034)
[2023-09-14 13:06] LABS: Appearance Urine Clear (Clear); Bacteria Urine None Seen /hpf; Bilirubin Urine Negative (Negative); Blood Urine Negative (Negative); Color Urine Yellow (Yellow); Glucose Urine UA Negative (Negative); Ketones Urine Negative (Negative); Leukocyte Esterase Ur Trace LEU/UL (Negative); Nitrate Urine Negative (Negative); Non Pathogenic Casts 0-2; Protein Urine Negative (Negative); RBC Urine 0-2 /hpf (0-2); Specific Grav Ur 1.006 (1.001-1.035); Squamous Epithelial Cell Urine None seen /hpf (Few); WBC Urine 0-5 /hpf
[2023-09-14 13:12] LABS: Add Urine Microscopic? YES
[2023-09-14 13:15] LABS: Alanine Aminotransferase 131 U/L (6-35); Albumin Level 4.2 g/dL (3.5-5.1); Alkaline Phosphatase 66 U/L (38-126); Anion Gap 7 mmol/L (8-16); Aspartate Amino Transferase 249 U/L (14-36); Bilirubin,Total 0.6 mg/dL (0.2-1.3); Blood Urea Nitrogen 12 mg/dL (7-17); Calcium 9.3 mg/dL (8.4-10.2); Carbon Dioxide 27 mmol/L (22-30); Chloride 105 mmol/L (98-107); Estimated Glomerular Filt Rate > 60; Glucose 111 mg/dL (65-110); Lipase 642 U/L (23-300); Potassium 3.6 mmol/L (3.4-5.0); Sodium 139 mmol/L (137-145)
[2023-09-14] MEDS: ONDANSETRON INJ 4 MG/2 ML VIAL IV PUSH ×2 (13:48→17:43)
[2023-09-14] MEDS: MORPHINE SULFATE (*CRX) 2 MG/ML INJ IV PUSH (14:02)
[2023-09-14 14:50] LABS: Lactic Acid Reflex 1.9 mmol/L (0.7-2.0)
[2023-09-14 15:09] LABS: Troponin I < 0.012 ng/mL (0.000-0.034)
[2023-09-14] MEDS: MORPHINE SULFATE (*CRX) 4 MG/ML INJ IV PUSH (17:43)
[2023-09-14] MEDS: SODIUM CHLORIDE 0.9% IV 1,000 ML 125 ML IV CONT (17:44)
--- NOTE | 2023-09-14 18:26 | ADMGEN ---
This patient, Evelyn Courtney, was admitted to Medical Room [facility] at 1823. Patient/family oriented to hospital policies and general routines including ID bracelet, bed and alarms, visiting hours, pain management, procedures, bathroom and other care routines, personal items, smoking policy, room service/diet, and visiting hours. Information on how to activate the Rapid Response Team has been discussed. Patient/Family are encouraged to report perceived risks to care and to ask questions if they do not understand what they are told or what they should do.
--- NOTE | 2023-09-14 20:15 | PM.IMHP ---
H&P: HPI History of Present Illness Date/Time: 09/14/23 20:15 Chief Complaint: Epigastric pain Narrative: This is a 73-year-old female with past medical history significant for GERD, angina pectoralis, anxiety, atrial fibrillation/flutter, coronary artery disease, dyslipidemia. Patient is post up day 2 status post cholecystectomy presents to the emergency room due to sudden onset of epigastric pain, constipation, nausea. Patient denies any fevers, rigors, chills has been a able to have some oral intake of bland diet. CT of abdomen and pelvis was reported as: EXAMINATION: CT abdomen pelvis w con DATE: 09/14/2023 14:19 INDICATION: Epigastric abdominal pain. Status post cholecystectomy on 09/12/2023. History of kidney stone. TECHNIQUE: Computed tomography (CT) of the abdomen and pelvis was performed with 100 CC Omnipaque 350 intravenous contrast. Automated exposure control and iterative reconstruction technique were employed. Exam dose:? 366.47 mGy-cm total exam DLP.? COMPARISON: 07/19/2023 KUB 04/12/2023 CT abdomen pelvis FINDINGS: There is mild atelectasis at the lung bases Normal heart size. No pericardial or pleural effusion. Status post cholecystectomy. This likely accounts for mild prominence of the bile ducts. No hepatic space-occupying mass lesion. The pancreatic duct is dilated, measuring up to approximately 6 mm maximal diameter. Consider MRCP or ERCP as clinically appropriate. No peripancreatic fat stranding or fluid collection. No apparent pancreatic mass lesion or any pancreatic calcification is noted. Normal splenic size. Normal morphology of the adrenal glands. Occasional bilateral renal cysts, measuring up to 1.2 cm on the right and left. No urinary tract calculus or hydroureteronephrosis. The urinary bladder is unremarkable. Status post hysterectomy. Normal caliber of the abdominal aorta. No intraperitoneal or retroperitoneal or pelvic mass lesion or adenopathy or ascites. There are nondilated fluid containing small bowel segments with occasional air-fluid levels which may be due to mild adynamic ileus postoperatively, less likely enteritis. No bowel obstruction, bowel wall thickening, pneumatosis or intraperitoneal free air. Severe degenerative disc disease at L5-S1. No suspicious osteolytic or osteoblastic lesions are noted. IMPRESSION:? Probable mild postoperative adynamic ileus Status post cholecystectomy 09/12/2023 The pancreatic duct is dilated, new since 04/12/2023. Consider ERCP or MRCP as clinically appropriate Patient is been admitted for further evaluation management and treatment. Review of Systems Review of Systems: epigastric pain Constitutional: Constitutional: Denies chills, Denies fever(s) and Denies night sweats Eyes: Eyes: Denies change in vision ENT: Denies dysphagia, Denies vertigo, Denies dizziness and Denies odynophagia Cardiovascular: Cardiovascular: Denies chest pain, Denies lightheadedness, Denies radiating jaw, neck or arm pain and Denies palpitations Respiratory: Respiratory: Denies cough and Denies dyspnea Gastrointestinal: Gastrointestinal: Reports abdominal pain, Reports constipation, Denies dyspepsia, Denies heartburn, Reports nausea and Denies vomiting Genitourinary: Genitourinary: Denies dysuria Musculoskeletal: Musculoskeletal: Reports back pain and Denies myalgias Integumentary/Breasts: Skin/Breast: Denies rash Neurologic: Denies focal weakness and Denies Sensory deficit (Neuro) Psychiatric: Psychiatric: Reports no additional psychiatric complaints and Reports as per HPI Endocrine: Endocrine: Denies cold intolerance, Denies flushing, Denies heat intolerance, Denies polyphagia, Denies polydipsia and Denies palpitations Hematologic/Lymphatic: Hematologic/Lymphatic: Reports no additional hematologic/lymphatic complaints and Reports as per HPI Allergic/Immunologic: Allergic/Immunologic: Reports no additional allergic/immunologic complaints and Reports as per HPI PM
[2023-09-15] MEDS: SODIUM CHLORIDE 0.9% IV 1,000 ML 125 ML IV CONT ×3 (02:36→23:24)
[2023-09-15] MEDS: ACETAMINOPHEN 500 MG TABLET 1000 MG PO (02:37)
[2023-09-15 06:12] VITALS: BP 129/66; PULSE 70; RESP 14; TEMP 36.5; O2SAT 98
--- NOTE | 2023-09-15 07:44 | PM.IMPN ---
Progress Note: A&P Assessment and Plan (1) S/P laparoscopic cholecystectomy: Code(s): Z90.49 - Acquired absence of other specified parts of digestive tract Status: Acute Assessment and Plan: Had laurent angel with Dr Green on 09/12 as an outpatient. NPO for now Consult Surgery. Recommendations are appreciated. No flatus currently and last BM was 09/11. Will start bowel regimen when appropriate. (2) Abdominal pain: Code(s): R10.9 - Unspecified abdominal pain Status: Acute Assessment and Plan: Reports of epigastric abdominal pain, N/V, constipation CT abdomen and pelvis shows possible, small adynamic ileus NPO with ice chips Holding home medications until seen by surgery and GI. Appreciate rec's from consulting services. NS @ 125 ml per hour (3) Ileus: Code(s): K56.7 - Ileus, unspecified Status: Acute Assessment and Plan: see 2 (4) Hyperlipidemia: Code(s): E78.5 - Hyperlipidemia, unspecified Status: Acute Assessment and Plan: Stable. Holding home rosuvastatin 2/2 transaminitis (5) Anxiety: Code(s): F41.9 - Anxiety disorder, unspecified Status: Acute Assessment and Plan: Stable Plan Feeding:NPO with ice chips Analgesia:morphine Thromboembolic prophylaxis: apixaban on hold until surgery sees her today. Will resume after. SCDs for now. Ulcer prophylaxis: Protonix IV daily Glycemic control: na Bowel regimen: hold off until surgery sees Lines: PIV Antibiotics:none Disposition: home Subjective Date/time seen: 09/15/23 07:44 Interval history: HPI obtained from chart, This is a 73-year-old female with a past medical history significant for GERD GERD, angina pectoralis is, anxiety, atrial fibrillation, CAD, and dyslipidemia. Patient is postop day 2 status post cholecystectomy and presents to the emergency room due to sudden onset of epigastric pain, constipation, and nausea. Initial CT abdomen and pelvis impression shows probable mild postoperative adynamic ileus. Her CBC is normal and BMP shows transaminitis as well as increased lipase. She is being admitted for pain control and surgical consult. 09/15: Mrs Courtney is seen after coming back from her MRCP. She reports that she is still having some abdominal pain but is slightly improved and travels to her left mid back. She states she always has the back pain for the last couple of years however is been quite increased these last couple days. Otherwise her abdominal pain tracks across the top left and right quadrants. At home she was having some nausea without vomiting associated to the pain. She has not passed gas and she has not had a bowel movement since 09/11. She reports that she really has not been eating or drinking much at home since surgery though and she is not feeling constipated. Her abdomen is flat and soft with hypoactive bowel sounds. Were waiting MRCP results. In the mean time continue with IV fluids, bowel rest, and NPO status. Review of Systems Review of Systems: All systems reviewed & are unremarkable except as noted in HPI and below Exam Narrative: General: well appearing, well developed, well nourished, appears stated age. HEENT: normocephalic, atraumatic. Mucous membranes moist. EOMI, PERRLA, bilateral sclera anicteric, no conjunctival injection. Neck supple without JVD, lymphadenopathy, or bruit. Respiratory: clear to auscultation bilaterally. No rales/rhonic/wheezes. Cardiovascular: Regular rate and rhythm, normal S1-S2 upon auscultation. No murmurs, rubs, or clicks. PMI is nondisplaced, capillary re-fill less than 3 second. Abdomen: Soft, flat, no pulsatile masses, non-distended and moderately tender to RU/LUQ. No rebound, no guarding. No CVA tenderness, no hepatosplenomegaly. Bowel sounds hypoactive to all four quadrants. No high pitch or tinkling sounds, resonant to percussion. Extremities: No cyanosis, clubbing, or everette
[2023-09-15] MEDS: PANTOPRAZOLE SODIUM IV 40 MG VIAL IV PUSH (08:42)
[2023-09-15] MEDS: MORPHINE SULFATE (*CRX) 4 MG/ML INJ IV PUSH (08:45)
--- NOTE | 2023-09-15 09:28 | PM.CNGS ---
Assessment and Plan Assessment and plan (1) Pancreatitis: Code(s): K85.90 - Acute pancreatitis without necrosis or infection, unspecified Status: Acute Assessment and Plan: unclear etiology, dilated pancreatic duct on CT, will get MRCP for further evaluation, appreciate GI consult (2) S/P laparoscopic cholecystectomy: Code(s): Z90.49 - Acquired absence of other specified parts of digestive tract Status: Acute Assessment and Plan: cont routine postop care History of Present Illness Consult details Consult date: 09/15/23 Narrative: The patient is a pleasant 73-year-old female status post laparoscopic cholecystectomy on 09/12 presenting to the emergency department complaining of upper abdominal pain radiating to her back and chest, nausea and vomiting. Workup in the emergency department, including imaging, was significant for acute pancreatitis, dilated pancreatic duct. This morning, the patient reports that she does feel better and really only has back pain at this time. Review of Systems Review of Systems: All systems reviewed & are unremarkable except as noted in HPI and below PMFSH Past Medical History Medical History Acid reflux Angina pectoris with documented spasm Anxiety Atrial fib/flutter, transient Atrial fibrillation with normal ventricular rate CAD (coronary artery disease) Disorder of left rotator cuff Hyperlipidemia Nephrolithiasis On statin therapy Osteopenia Stress at work Surgical History Surgical History H/O heart surgery History of lithotripsy Hx of hysterectomy Family History Family History Mother Hypertension Cerebrovascular accident Family history of malignant neoplasm of breast in first degree relative Patient's mother is Father Family history of lung cancer Patient's father is Other Asthma Depression Family history of arthritis Family history of heart disease in male family member before age 55 Social History Social History Social History: Smoking status: Never smoker Second hand tobacco smoke exposure: No Alcohol intake: current Alcohol use details: rarely Substance use: never Substance use type: does not use Lack of Transportation: No Lack of Food: Never True Current Housing: I Have Housing Concerned About Future Housing: No Difficulty Paying Gas/Electric Bills: No Difficulty Paying for Meds: No Currently Unemployed: No Education: High School Diploma/GED Difficulty w/ Childcare or Family Care: No Living arrangements: with family Additional living arrangements comments: [facility] Occupation/Education: occupation Gender identity (if verbalized by the patient): Female Sexual Orientation (if Verbalized by the Patient): Straight or Heterosexual Spiritual care concerns: No Meds Home Medications and Allergies Home Medications Medication Instructions Recorded Confirmed Type apixaban 5 mg tablet (Eliquis) 5 mg PO BID 03/07/22 09/14/23 History cholecalciferol (vitamin D3) 10 10 mcg PO DAILY 04/02/23 09/14/23 History mcg (400 unit) capsule rosuvastatin 5 mg tablet See Rx Instructions .Route 04/12/23 09/14/23 Rx .COMPLEX #90 tabs gabapentin 100 mg capsule 100 mg PO TID PRN Pain 05/21/23 09/14/23 History calcium carbonate 600 mg calcium 600 mg PO DAILY 08/24/23 09/14/23 History (1,500 mg) tablet omega 3 600 mg-dha 216 mg-epa 324 1 cap PO DAILY 08/24/23 09/14/23 History mg-fish oil 1,200 mg capsule,del rel oxycodone-acetaminophen 5 mg-325 0.5 - 1 tablet PO Q4H PRN pain #10 09/12/23 09/14/23 Rx mg tablet (Endocet) tabs Allergies Allergy/AdvReac Type Severity Reaction Status Date / Time No Known Allergies Allergy Verified 09/14/23 11:38 Vital Signs Vital Signs - 24 hr 09/14/23
[2023-09-15] MEDS: PROCHLORPERAZINE EDISYLATE 10 MG/2 ML VIAL IV PUSH (14:32)
[2023-09-15] MEDS: diphenhydrAMINE HCl INJ 50 MG/ML VIAL 25 MG IV PUSH (14:32)
[2023-09-15] MEDS: KETOROLAC 30 MG/ML VIAL (*BKC) IV PUSH (14:33)
[2023-09-15 15:05] VITALS: BP 133/67; PULSE 63; RESP 16; TEMP 36.7; O2SAT 99
--- NOTE | 2023-09-15 16:04 | WPDGICN ---
Assessment and Plan Assessment and plan (1) Pancreatitis: Code(s): K85.90 - Acute pancreatitis without necrosis or infection, unspecified Status: Acute Assessment and Plan: wonder if could have passed stone also another risk factor for pancreatitis is pancreas divisum trend liver enzymes and pain management no ercp for now dilated bile duct probably from recent lap flaco (2) S/P laparoscopic cholecystectomy: Code(s): Z90.49 - Acquired absence of other specified parts of digestive tract Status: Acute (3) Abdominal pain: Code(s): R10.9 - Unspecified abdominal pain Status: Acute Assessment and Plan: improving (4) Pancreas divisum: Code(s): Q45.3 - Other congenital malformations of pancreas and pancreatic duct Status: Acute Assessment and Plan: this could have been cause of pancreatitis, first episode (5) Elevated liver enzymes: Code(s): R74.8 - Abnormal levels of other serum enzymes Status: Acute Assessment and Plan: probably in setting of pancreatitis, expect that will come down GI Consult Note Consult date/time: 09/15/23 16:04 Reason for consult: pancreatitis HPI: Evelyn Courtney is a 73 year old female status post laparoscopic cholecystectomy on 09/12 presenting to the emergency department complaining of upper abdominal pain radiating to her back and chest, nausea and dry heaves. Workup in the emergency department was significant for acute pancreatitis, lipase elevated, transaminases 200, normal bili. No alcohol use, TG level in the past normal, no previous episode of pancreatitis. CT scan reviewed, Status post cholecystectomy 09/12/2023, the pancreatic duct is dilated. Then MRCP showed pancreas divisum, Dilated common bile duct 8mm and pancreatic duct 6mm without obstructing stone identified. She is already feeling better with pain meds. at beside. Review of Systems Review of Systems: epigastric pain Constitutional: Constitutional: Denies chills, Denies fever(s) and Denies night sweats Eyes: Eyes: Denies change in vision ENT: Denies dysphagia, Denies vertigo, Denies dizziness and Denies odynophagia Cardiovascular: Cardiovascular: Denies chest pain, Denies lightheadedness, Denies radiating jaw, neck or arm pain and Denies palpitations Respiratory: Respiratory: Denies cough and Denies dyspnea Gastrointestinal: Gastrointestinal: Reports abdominal pain, Reports constipation, Denies dyspepsia, Denies heartburn, Reports nausea and Denies vomiting Genitourinary: Genitourinary: Denies dysuria Musculoskeletal: Musculoskeletal: Reports back pain and Denies myalgias Integumentary/Breasts: Skin/Breast: Denies rash Neurologic: Denies focal weakness Psychiatric: Psychiatric: Reports no additional psychiatric complaints and Reports as per HPI Endocrine: Endocrine: Denies cold intolerance, Denies flushing, Denies heat intolerance, Denies polyphagia, Denies polydipsia and Denies palpitations Hematologic/Lymphatic: Hematologic/Lymphatic: Reports no additional hematologic/lymphatic complaints and Reports as per HPI Allergic/Immunologic: Allergic/Immunologic: Reports no additional allergic/immunologic complaints and Reports as per HPI PMFSH Past Medical History Medical History Acid reflux Angina pectoris with documented spasm Anxiety Atrial fib/flutter, transient Atrial fibrillation with normal ventricular rate CAD (coronary artery disease) Disorder of left rotator cuff Elevated liver enzymes Hyperlipidemia Nephrolithiasis On statin therapy Osteopenia Pancreas divisum Stress at work Surgical History Surgical History H/O heart surgery History of lithotripsy Hx of hysterectomy Family History Family History Mother Hypertension Cerebrovascular accident Family history of malignant neoplasm of breast i
[2023-09-15 19:56] VITALS: PULSE 63; RESP 16; O2SAT 99
[2023-09-15 21:39] VITALS: BP 135/71; PULSE 57; RESP 16; TEMP 36.4; O2SAT 97
[2023-09-15] MEDS: LIDOCAINE 5% PATCH 1 PATCH TRANSDERM (22:03)
[2023-09-16 05:33] LABS: Basophils Percent Auto 0.8 % (0.2-1.2); Eosinophils Absolute Auto 0.2 K/mm3 (0-0.3); Eosinophils Percent Auto 4.1 % (0-4.4); Hematocrit 36.8 % (37.0-47.0); Hemoglobin 11.6 g/dL (12.0-15.0); Immature Granulocyte Absolute 0.02 K/mm3 (0.00-0.031); Immature Granulocyte Percent A 0.5 % (0-0.5); Lymphocytes Absolute Auto 0.93 K/mm3 (0.9-3.2); Lymphocytes Percent Auto 23.5 % (18.3-44.2); Mean Corpuscular HGB Conc 31.5 g/dl (32-36); Mean Corpuscular Hemoglobin 29.7 pg (26-34); Mean Corpuscular Volume 94.1 fl (80-100); Mean Platelet Volume 10.6 fl (7.4-10.4); Monocytes Absolute Auto 0.4 K/mm3 (0.1-0.6); Monocytes Percent Auto 9.6 % (2.6-8.5); Neutrophils Absolute Auto 2.4 K/mm3 (1.3-6.7); Neutrophils Percent Auto 61.5 % (45.5-73.1); Platelet Count Result 140 k/mm3 (150-375); Red Blood Count 3.91 M/mm3 (4.2-5.4)
[2023-09-16 05:44] LABS: Alanine Aminotransferase 352 U/L (6-35); Albumin Level 3.2 g/dL (3.5-5.1); Alkaline Phosphatase 119 U/L (38-126); Anion Gap 4 mmol/L (8-16); Aspartate Amino Transferase 260 U/L (14-36); Bilirubin,Total 0.7 mg/dL (0.2-1.3); Blood Urea Nitrogen 13 mg/dL (7-17); Calcium 8.4 mg/dL (8.4-10.2); Carbon Dioxide 24 mmol/L (22-30); Chloride 108 mmol/L (98-107); Estimated CRCL calculation 81 ml/min; Estimated Glomerular Filt Rate > 60; Glucose 68 mg/dL (65-110); Potassium 3.8 mmol/L (3.4-5.0); Sodium 136 mmol/L (137-145)
[2023-09-16 06:00] VITALS: BP 132/70; PULSE 69; RESP 16; TEMP 36.3; O2SAT 98
[2023-09-16] MEDS: SODIUM CHLORIDE 0.9% IV 1,000 ML 125 ML IV CONT (06:29)
--- NOTE | 2023-09-16 06:55 | PM.IMPN ---
Progress Note: A&P Assessment and Plan (1) Abdominal pain: Code(s): R10.9 - Unspecified abdominal pain Status: Acute Assessment and Plan: Admit to regular medical floor Pain Management General surgery consult (2) Symptomatic cholelithiasis: Code(s): K80.20 - Calculus of gallbladder without cholecystitis without obstruction Status: Acute Assessment and Plan: Consider GI consult Patient is status post cholecystectomy CT shows dilated bile duct MRCP negative Abdominal pain resolving Tolerating full liquid diet (3) Hyperlipidemia: Code(s): E78.5 - Hyperlipidemia, unspecified Status: Acute Assessment and Plan: Patient is on a statin Follow-up in outpatient setting (4) Anxiety: Code(s): F41.9 - Anxiety disorder, unspecified Status: Acute Assessment and Plan: Stable (5) Ileus: Code(s): K56.7 - Ileus, unspecified Status: Acute Assessment and Plan: Resolved Patient had bowel movement this morning Subjective Date/time seen: 09/16/23 06:55 Interval history: HPI obtained from chart, This is a 73-year-old female with a past medical history significant for GERD GERD, angina pectoralis is, anxiety, atrial fibrillation, CAD, and dyslipidemia. Patient is postop day 2 status post cholecystectomy and presents to the emergency room due to sudden onset of epigastric pain, constipation, and nausea. Initial CT abdomen and pelvis impression shows probable mild postoperative adynamic ileus. Her CBC is normal and BMP shows transaminitis as well as increased lipase. She is being admitted for pain control and surgical consult. 09/15: Mrs Courtney is seen after coming back from her MRCP. She reports that she is still having some abdominal pain but is slightly improved and travels to her left mid back. She states she always has the back pain for the last couple of years however is been quite increased these last couple days. Otherwise her abdominal pain tracks across the top left and right quadrants. At home she was having some nausea without vomiting associated to the pain. She has not passed gas and she has not had a bowel movement since 09/11. She reports that she really has not been eating or drinking much at home since surgery though and she is not feeling constipated. Her abdomen is flat and soft with hypoactive bowel sounds. Were waiting MRCP results. In the mean time continue with IV fluids, bowel rest, and NPO status. 09/16: No acute events overnight. Her pain is resolved today. And she has been able to have a bowel movement. GI had advance her diet to full liquid for breakfast which she tolerated without nausea vomiting, pain. Will advance to regular diet at lunch and see how she tolerates that. She can likely discharge this afternoon. Review of Systems Review of Systems: All systems reviewed & are unremarkable except as noted in HPI and below Exam Narrative: General: well appearing, well developed, well nourished, appears stated age. HEENT: normocephalic, atraumatic. Mucous membranes moist. EOMI, PERRLA, bilateral sclera anicteric, no conjunctival injection. Neck supple without JVD, lymphadenopathy, or bruit. Respiratory: clear to auscultation bilaterally. No rales/rhonic/wheezes. Cardiovascular: Regular rate and rhythm, normal S1-S2 upon auscultation. No murmurs, rubs, or clicks. PMI is nondisplaced, capillary re-fill less than 3 second. Abdomen: Soft, flat, no pulsatile masses, non-distended and non-tender to RU/LUQ. No rebound, no guarding. No CVA tenderness, no hepatosplenomegaly. Bowel sounds hypoactive to all four quadrants. No high pitch or tinkling sounds, resonant to percussion. Extremities: No cyanosis, clubbing, or edema present. Pulses are palpable 2/2. Active ROM to all four extremities. Neuro: Alert and orientated x 4. PERRLA. Cranial nerves 2-12 intact without focal deficit. Skin: Warm, dry, and intact, without
[2023-09-16 07:15] LABS: Lipase 66 U/L (23-300)
[2023-09-16] MEDS: LIDOCAINE 5% PATCH 1 PATCH TRANSDERM (08:27)
[2023-09-16] MEDS: PANTOPRAZOLE SODIUM IV 40 MG VIAL IV PUSH (08:28)
--- NOTE | 2023-09-16 09:06 | PM.PNGS ---
Progress Note: A&P Assessment and Plan (1) Pancreatitis: Code(s): K85.90 - Acute pancreatitis without necrosis or infection, unspecified Status: Acute Assessment and Plan: MRCP reviewed, appreciate GI input, labs and exam normalized, will start diet, if prince s issue ok to dc home c f/u as outpt (2) S/P laparoscopic cholecystectomy: Code(s): Z90.49 - Acquired absence of other specified parts of digestive tract Status: Acute Assessment and Plan: cont routine postop care Subjective Subjective Date/Time Seen: 09/16/23 09:06 Interval history: feels much better today, abd symptoms resolved Review of Systems Review of Systems: All systems reviewed & are unremarkable except as noted in HPI and below Exam Const: General: cooperative, comfortable and no acute distress Resp: Auscultation: clear to auscultation bilaterally Cardio: Rate: regular rate Rhythm: regular rhythm GI: Inspection: normal to inspection and non-distended GI Palp: No abdominal tenderness, Yes Soft to palpation, No Tenderness to palpation present (GI), No Guarding due to palpation present (GI) and No Rigid due to palpation Objective Data Vital Signs Vital Signs: Vital Signs - 24 hr 09/15/23 15:05 09/15/23 19:56 09/15/23 21:39 Temperature 36.7 C 36.4 C L Pulse Rate 63 63 57 L Respiratory Rate 16 16 16 Blood Pressure 133/67 135/71 Pulse Oximetry 99 99 97 Oxygen Delivery Room Air 09/16/23 06:00 Temperature 36.3 C L Pulse Rate 69 Respiratory Rate 16 Blood Pressure 132/70 Pulse Oximetry 98 Oxygen Delivery Intake/Output Intake/Output: Intake & Output 09/13/23 09/14/23 09/15/23 09/16/23 23:59 23:59 23:59 22:59 Intake Total 3000 1000 Balance 3000 1000 Meds/Results Medications: Active Medications Generic Name Dose Route Start Last Admin Trade Name Freq PRN Reason Stop Dose Admin Acetaminophen 1,000 mg 09/15/23 02:30 09/15/23 02:37 Acetaminophen 500 Mg Tablet PO 1,000 mg Q6H PRN Administration Mild Pain (1-3) or Fever Hydromorphone HCl 0.5 mg 09/15/23 14:25 Hydromorphone Hcl Inj (*Crx) 1 Mg/Ml Syr IV PUSH Q3H PRN Pain Rated 7-10 Sodium Chloride 1,000 mls @ 125 mls/hr 09/14/23 16:50 09/16/23 06:29 Normal Saline Iv IV CONT 125 mls/hr .Q8H CLAUDIO Administration Lidocaine 1 patch 09/15/23 21:00 09/16/23 08:27 Lidocaine 5% Patch TRANSDERM 1 patch DAILY CLAUDIO Administration Ondansetron HCl 4 mg 09/14/23 16:50 09/14/23 17:43 Ondansetron Inj 4 Mg/2 Ml Vial IV PUSH 4 mg Q4H PRN Administration Nausea Pantoprazole Sodium 40 mg 09/15/23 09:00 09/16/23 08:28 Pantoprazole Sodium Iv 40 Mg Vial IV PUSH 40 mg QAM CLAUDIO Administration Radiology Results: ITS Impressions Abdomen/Pelvis CT 09/14/23 14:24 IMPRESSION: Probable mild postoperative adynamic ileus Status post cholecystectomy 09/12/2023 The pancreatic duct is dilated, new since 04/12/2023. Consider ERCP or MRCP as clinically appropriate MRCP 09/15/23 13:02 IMPRESSION: 1. Dilated common bile duct and pancreatic duct without obstructing stone identified. Labs Labs: Laboratory Results - last 24 hr 09/16/23 09/16/23 04:43 04:46 WBC 4.0 L RBC 3.91 L Hgb 11.6 L Hct 36.8 L MCV 94.1 MCH 29.7 MCHC 31.5 L RDW 12.0 Plt Count 140 L MPV 10.6 H Immature Gran % (Auto) 0.5 Neut % (Auto) 61.5 Lymph % (Auto) 23.5 [place] % (Auto) 9.6 H Eos % (Auto) 4.1 Baso % (Auto) 0.8 Lymph # (Auto) 0.93 [place] # (Auto) 0.4 Eos # (Auto) 0.2 Baso # (Auto) 0.0 Abs Immat Gran (auto) 0.02 Absolute Neuts (auto) 2.4 Absolute Nucleated RBC 0.0 Nucleated RBC % 0.0 Sodium 136 L Potassium 3.8 Chloride 108 H Carbon Dioxide 24 Anion Gap 4 L BUN 13 Creatinine 0.50 L Estim Creat Clear Calc 81 Estimated GFR > 60 Glucose 68 Calcium 8.4 Total Bilirubin 0.7 AST 260 H ALT 35
--- NOTE | 2023-09-16 11:22 | PM.DS ---
DS: Admitting Diagnosis Discharge Date 09/16 Admitting Diagnosis Abdominal pain DS: Discharge Diagnosis Discharge Diagnosis (1) Abdominal pain: Code(s): R10.9 - Unspecified abdominal pain Status: Acute Assessment and Plan: Admit to regular medical floor Pain Management General surgery consult (2) Symptomatic cholelithiasis: Code(s): K80.20 - Calculus of gallbladder without cholecystitis without obstruction Status: Acute Assessment and Plan: Consider GI consult Patient is status post cholecystectomy CT shows dilated bile duct MRCP negative Abdominal pain resolving Tolerating full liquid diet (3) Hyperlipidemia: Code(s): E78.5 - Hyperlipidemia, unspecified Status: Acute Assessment and Plan: Patient is on a statin Follow-up in outpatient setting (4) Anxiety: Code(s): F41.9 - Anxiety disorder, unspecified Status: Acute Assessment and Plan: Stable (5) Ileus: Code(s): K56.7 - Ileus, unspecified Status: Acute Assessment and Plan: Resolved Patient had bowel movement this morning DS: Summary Hospital Course Hospital Course: This is a 73-year-old female with a past medical history significant for GERD GERD, angina pectoralis is, anxiety, atrial fibrillation, CAD, and dyslipidemia.? Patient is postop day 2 status post cholecystectomy and presents to the emergency room due to sudden onset of epigastric pain, constipation, and nausea.? Initial CT abdomen and pelvis impression shows probable mild postoperative adynamic ileus.? Her CBC is normal and BMP shows transaminitis as well as increased lipase.? She is being admitted for pain control and surgical consult. 09/15: Mrs Courtney is seen after coming back from her MRCP.? She reports that she is still having some abdominal pain but is slightly improved and travels to her left mid back.? She states she always has the back pain for the last couple of years however is been quite increased these last couple days.? Otherwise her abdominal pain tracks across the top left and right quadrants.? At home she was having some nausea without vomiting associated to the pain.? She has not passed gas and she has not had a bowel movement since 09/11.? She reports that she really has not been eating or drinking much at home since surgery though and she is not feeling constipated.? Her abdomen is flat and soft with hypoactive bowel sounds.? Were waiting MRCP results. In the mean time continue with IV fluids, bowel rest, and NPO status. 09/16:? No acute events overnight.? Her pain is resolved today.? And she has been able to have a bowel movement.? GI had advance her diet to full liquid for breakfast which she tolerated without nausea vomiting, pain.? Will advance to regular diet at lunch and see how she tolerates that.? She can likely discharge this afternoon. Status at Discharge Cognitive/behavioral status at discharge: A&O x4, + Time Spent with Patient Time attestation: Total time spent providing and/or coordinating discharge services:42 Exam Narrative: General: well appearing, well developed, well nourished, appears stated age. HEENT: normocephalic, atraumatic. Mucous membranes moist. EOMI, PERRLA, bilateral sclera anicteric, no conjunctival injection. Neck supple without JVD, lymphadenopathy, or bruit. Respiratory: clear to auscultation bilaterally. No rales/rhonic/wheezes. Cardiovascular: Regular rate and rhythm, normal S1-S2 upon auscultation. No murmurs, rubs, or clicks. PMI is nondisplaced, capillary re-fill less than 3 second. Abdomen: Soft, flat, no pulsatile masses, non-distended and non-tender to RU/LUQ. No rebound, no guarding. No CVA tenderness, no hepatosplenomegaly. Bowel sounds hypoactive to all four quadrants. No high pitch or tinkling sounds, resonant to percussion. Extremities: No cyanosis, clubbing, or edema present. Pulses are palpable 2/2. Active ROM to all four extremities. Neuro: [facility]
--- NOTE | 2023-09-16 12:33 | WPDGIPROGNO ---
Progress Note: A&P Assessment and Plan (1) Pancreatitis: Code(s): K85.90 - Acute pancreatitis without necrosis or infection, unspecified Status: Acute Assessment and Plan: clinically much better mrcp without stones, also noted pancreas divisum and wonder if was a factor of pancreatitis after recent cholecystectomy advance to low fat diet and probably home later today if no more pain (2) Pancreas divisum: Code(s): Q45.3 - Other congenital malformations of pancreas and pancreatic duct Status: Acute Assessment and Plan: incidental finding in MRCP (3) Elevated liver enzymes: Code(s): R74.8 - Abnormal levels of other serum enzymes Status: Acute Assessment and Plan: probably from pancreatitis and recent cholecystectomy repeat as outpatient (4) S/P laparoscopic cholecystectomy: Code(s): Z90.49 - Acquired absence of other specified parts of digestive tract Status: Acute Subjective Date/time seen: 09/16/23 12:33 Interval history: pain almost gone and tolerated liquid diet Results of MRCP reviewed with patient and Review of Systems Review of Systems: All systems reviewed & are unremarkable except as noted in HPI and below Exam Const: General: cooperative, comfortable and no acute distress HENMT: Face/Nose/Sinus: Normal nares present Eyes: Sclera: sclerae normal Neck: Neck: supple Resp: Auscultation: clear to auscultation bilaterally Cardio: Rate: regular rate Rhythm: regular rhythm GI: Inspection: normal to inspection and non-distended GI Palp: No abdominal tenderness, Yes Soft to palpation, No Tenderness to palpation present (GI), No Guarding due to palpation present (GI) and No Rigid due to palpation Skin: General skin exam: normal color Neuro: Speech: normal speech Motor exam (neuro): 5/5 motor strength present throughout Extrem: General: normal to inspection Psych: Affect: normal affect Objective Data Vital Signs Vital Signs: Vital Signs - 24 hr 09/15/23 15:05 09/15/23 19:56 09/15/23 21:39 Temperature 98.0 F 97.5 F L Pulse Rate 63 63 57 L Respiratory Rate 16 16 16 Blood Pressure 133/67 135/71 Pulse Oximetry 99 99 97 Oxygen Delivery Room Air 09/16/23 06:00 09/16/23 08:40 Temperature 97.3 F L Pulse Rate 69 Respiratory Rate 16 Blood Pressure 132/70 Pulse Oximetry 98 Oxygen Delivery Room Air Intake/Output Intake/Output: Intake & Output 09/13/23 09/14/23 09/15/23 09/16/23 23:59 23:59 23:59 22:59 Intake Total 3000 1480 Balance 3000 1480 Meds/Results Medications: Active Medications Generic Name Dose Route Start Last Admin Trade Name Freq PRN Reason Stop Dose Admin Acetaminophen 1,000 mg 09/15/23 02:30 09/15/23 02:37 Acetaminophen 500 Mg Tablet PO 1,000 mg Q6H PRN Administration Mild Pain (1-3) or Fever Apixaban 5 mg 09/16/23 11:20 Apixaban 5 Mg Tablet PO BID [facility] Calcium Carbonate 500 mg 09/17/23 09:00 Calcium Carbonate (Tums) 500 Mg (200 Mg Elemental) PO DAILY [facility] Fish Oil 1 gm 09/17/23 09:00 Elroy 3 Polyunsat Fatty Acids 1 Gm Cap PO DAILY [facility] Gabapentin 100 mg 09/16/23 11:20 Gabapentin 100 Mg Capsule PO TID PRN Pain Hydromorphone HCl 0.5 mg 09/15/23 14:25 Hydromorphone Hcl Inj (*Crx) 1 Mg/Ml Syr IV PUSH Q3H PRN Pain Rated 7-10 Lidocaine 1 patch 09/15/23 21:00 09/16/23 08:27 Lidocaine 5% Patch TRANSDERM 1 patch DAILY [facility] Administration Ondansetron HCl 4 mg 09/14/23 16:50 09/14/23 17:43 Ondansetron Inj 4 Mg/2 Ml Vial IV PUSH 4 mg Q4H PRN Administration Nausea Pantoprazole Sodium 40 mg 09/15/23 09:00 09/16/23 08:28 Pantoprazole Sodium Iv 40 Mg Vial IV PUSH 40 mg QAM CLAUDIO Administration Polyethylene Glycol 17 gm 09/16/23 11:06 Polyethylene Glycol 3350 17 Gm Powd.Pack PO QAM PRN Constipation Senna/Docusate Sodium 1 tab 09/17/23 09:
== END 2023-09-16 13:15 | disposition home or self-care (01) | DRG 439 ==
LOC: ANHED 16:50 → ANH2MED 18:36 → ANH3MEDSUR 18:37
PROVIDERS: Emergency Medicine; Admitting Provider Internal Medicine; Emergency Provider Emergency Medicine; PCP Family Medicine; Visit Provider Nurse Practitioner Acute Care
DX: K85.90 Acute pancreatitis without necrosis or infection, unspecified (principal); K56.7 Ileus, unspecified; K91.89 Other postprocedural complications and disorders of digestive system; Q45.3 Other congenital malformations of pancreas and pancreatic duct; K21.9 Gastro-esophageal reflux disease without esophagitis; R74.8 Abnormal levels of other serum enzymes; E78.5 Hyperlipidemia, unspecified; F41.9 Anxiety disorder, unspecified; I48.91 Unspecified atrial fibrillation; I25.10 Atherosclerotic heart disease of native coronary artery without angina pectoris; Z90.49 Acquired absence of other specified parts of digestive tract; Z79.01 Long term (current) use of anticoagulants; Z90.710 Acquired absence of both cervix and uterus; Z28.21 Immunization not carried out because of patient refusal
CPT/HCPCS: 36415; 74177; 74183; 76376; 80053; 81001; 83605; 83690; 84484; 85025; 93005; 96374; 96375; 96376; 99285; A9270; A9577; C9113; G0378; J0780; J1200; J1885; J2270; J2405; J7030; Q9967

== ENCOUNTER 2024-02-13 10:49 | Outpatient (CLI) | payer MEDICARE, SELFPAY ==
--- NOTE | ~2024-02-13 | XR_ITS ---
XR hip LT 2V w AP pelvis DATE: 02/13/2024 11:10 INDICATION: Left hip pain for many years. No injury. TECHNIQUE: AP pelvis. AP and lateral views of left hip. COMPARISON: None FINDINGS: The pubic symphysis and sacroiliac joints are intact. No pelvic fracture or bone destructio n. Hip joint spaces are symmetric and well preserved. No fracture or dislocation, avascular necrosis or bone destruction of the left hip is detected. IMPRESSION: No significant abnormality Reviewed, dictated and finalized at location [facility]. IMPRESSION: No significant abnormality
== END 2024-02-13 10:50 ==
LOC: MICIMG 10:50
PROVIDERS: PCP Family Medicine; Visit Provider Orthopaedic Surgery
DX: M25.552 Pain in left hip (principal)
CPT/HCPCS: 73502

== ENCOUNTER 2024-03-25 10:53 | Outpatient (CLI) | payer MEDICARE, SELFPAY ==
--- NOTE | ~2024-03-25 | XR_ITS ---
Supine and upright views of the abdomen Clinical history: Kidney stones COMPARISON: 07/19/2023 Findings: Bowel gas pattern is nonspecific. No evidence for obstruction or free air. No abnormal mass lesion or calcification is seen. Osseous structures are intact. Impression: No significant abnormality is seen. Reviewed, dictated and finalized at [facility]. Impression: No significant abnormality is seen.
== END 2024-03-25 10:54 ==
PROVIDERS: PCP Family Medicine; Visit Provider Urology
DX: Z87.442 Personal history of urinary calculi (principal)
CPT/HCPCS: 74018

== ENCOUNTER 2024-03-31 01:30 | Day surgery (SDC) | payer MEDICARE, SELFPAY ==
[2024-03-20 14:33] VITALS: BMI 23.3
--- NOTE | 2024-03-25 14:57 | PC.NURSE ---
Spoke with _patient_ regarding medication _Eliquis_. Pt. verbalizes understanding that the last dose of _Eliquis__ is to be taken on _03/28/2024__ and the Endoscopist will instruct them when to restart after the procedure.
[2024-03-31 06:44] VITALS: BP 101/64; PULSE 83; RESP 18; TEMP 36; O2SAT 99
[2024-03-31] MEDS: LACTATED RINGERS 1,000 ML 150 ML IV CONT (06:56)
--- NOTE | 2024-03-31 07:34 | WPDANESEPPF ---
Anes - Initial Pre Proc Eval Procedure: Operation Date: 03/31/24 08:00 Proposed Procedures p Colonoscopy - Hai Sandra MD Date/Time: 03/31/24 07:34 Surgeon: Hai Sandra MD Pre Op Diagnosis: Personal Hx. of colon polyps Patient Data Age: 74 Gender: F Height: 1.69 m Weight: 66.1 kg Last Vital Signs Temp 96.8 F L 03/31/24 06:44 Pulse 83 03/31/24 06:44 Resp 18 03/31/24 06:44 BP 101/64 03/31/24 06:44 Pulse Ox 99 03/31/24 06:44 O2 Del Method Room Air 03/31/24 06:44 Allergies Allergy/AdvReac Type Severity Reaction Status Date / Time No Known Allergies Allergy Verified 03/31/24 06:40 Home Medications Medication Instructions Recorded Confirmed Type apixaban 5 mg tablet (Eliquis) 5 mg PO BID 03/07/22 03/31/24 History calcium carbonate 600 mg PO DAILY 08/24/23 03/20/24 History omega 3 600 mg-dha 216 mg-epa 324 1 cap PO DAILY 08/24/23 03/20/24 History mg-fish oil 1,200 mg capsule,del rel colestipol 1 gram tablet 1 g PO DAILY #30 tabs 02/26/24 03/20/24 Rx rosuvastatin 5 mg tablet See Rx Instructions .Route 03/13/24 03/20/24 Rx .COMPLEX #90 tabs Glucosamine Chondroitin 1,500 mg PO DAILY 03/20/24 03/20/24 History cholecalciferol (vitamin D3) 25 25 mcg PO DAILY 03/20/24 03/20/24 History mcg (1,000 unit) capsule (Vitamin D3) cholestyramine (with sugar) 4 gram 4 g PO DAILY 03/20/24 03/20/24 History powder for susp in a packet (Questran) duloxetine 20 mg capsule,delayed 20 mg PO DAILY 03/20/24 03/20/24 History release (Cymbalta) Patient hx anesthesia problems: none Family hx anesthesia problems: none Results Review: All pre-operative results and documents have been reviewed as part of the pre-operative evaluation. [facility] Past Medical History Medical History Acid reflux Angina pectoris with documented spasm Anxiety Atrial fib/flutter, transient Atrial fibrillation with normal ventricular rate CAD (coronary artery disease) Chronic diarrhea Disorder of left rotator cuff Elevated liver enzymes Epigastric pain Hx of adenomatous colonic polyps Hx of pancreatitis Hyperlipidemia Nephrolithiasis On statin therapy Osteopenia Pancreas divisum Stress at work Surgical History Surgical History H/O heart surgery History of laparoscopic cholecystectomy 09/12/[address] Green at [facility] History of lithotripsy Hx of hysterectomy Family History Family History Mother Hypertension Cerebrovascular accident Family history of malignant neoplasm of breast in first degree relative Patient's mother is Father Family history of lung cancer Patient's father is Other Asthma Depression Family history of arthritis Family history of heart disease in male family member before age 55 Social History Social History Social History: Smoking status: Never smoker Second hand tobacco smoke exposure: No Alcohol intake: current Alcohol use details: rarely Substance use: never Substance use type: does not use Lack of Transportation: No Lack of Food: Never True Current Housing: I Have Housing Concerned About Future Housing: No Difficulty Paying Gas/Electric Bills: No Difficulty Paying for Meds: No Currently Unemployed: No Education: High School Diploma/GED Difficulty w/ Childcare or Family Care: No Living arrangements: with family Additional living arrangements comments: [place] Occupation/Education: occupation Gender identity (if verbalized by the patient): Female Sexual Orientation (if Verbalized by the Patient): Straight or Heterosexual Spiritual care concerns: No Anes - Eval Final PreProcedure Day of Procedure 03/31/24 07:34 Patient weight: normal Heart: irregular rhythm Lungs: clear
--- NOTE | 2024-03-31 07:54 | PM.HPGS ---
History of Present Illness History of Present Illness Consent: Risks, benefits, and alternatives have been discussed and questions answered. Patient agrees to proceed with procedure. Chief complaint: Personal Hx. of colon polyps Narrative: Evelyn Courtney is a 74 year old female with ibs-d, better on colestipol (had cholecystectomy), last colonoscopy 2017 Review of Systems Review of Systems: All systems reviewed & are unremarkable except as noted in HPI and below PMFSH Past Medical History Medical History Acid reflux Angina pectoris with documented spasm Anxiety Atrial fib/flutter, transient Atrial fibrillation with normal ventricular rate CAD (coronary artery disease) Chronic diarrhea Disorder of left rotator cuff Elevated liver enzymes Epigastric pain Hx of adenomatous colonic polyps Hx of pancreatitis Hyperlipidemia Nephrolithiasis On statin therapy Osteopenia Pancreas divisum Stress at work Surgical History Surgical History H/O heart surgery History of laparoscopic cholecystectomy 09/12/[address] Green at [facility] History of lithotripsy Hx of hysterectomy Family History Family History Mother Hypertension Cerebrovascular accident Family history of malignant neoplasm of breast in first degree relative Patient's mother is Father Family history of lung cancer Patient's father is Other Asthma Depression Family history of arthritis Family history of heart disease in male family member before age 55 Social History Social History Social History: Smoking status: Never smoker Second hand tobacco smoke exposure: No Alcohol intake: current Alcohol use details: rarely Substance use: never Substance use type: does not use Lack of Transportation: No Lack of Food: Never True Current Housing: I Have Housing Concerned About Future Housing: No Difficulty Paying Gas/Electric Bills: No Difficulty Paying for Meds: No Currently Unemployed: No Education: High School Diploma/GED Difficulty w/ Childcare or Family Care: No Living arrangements: with family Additional living arrangements comments: [place] Occupation/Education: occupation Gender identity (if verbalized by the patient): Female Sexual Orientation (if Verbalized by the Patient): Straight or Heterosexual Spiritual care concerns: No Meds Home Medications and Allergies Home Medications Medication Instructions Recorded Confirmed Type apixaban 5 mg tablet (Eliquis) 5 mg PO BID 03/07/22 03/31/24 History calcium carbonate 600 mg PO DAILY 08/24/23 03/20/24 History omega 3 600 mg-dha 216 mg-epa 324 1 cap PO DAILY 08/24/23 03/20/24 History mg-fish oil 1,200 mg capsule,del rel colestipol 1 gram tablet 1 g PO DAILY #30 tabs 02/26/24 03/20/24 Rx rosuvastatin 5 mg tablet See Rx Instructions .Route 03/13/24 03/20/24 Rx .COMPLEX #90 tabs Glucosamine Chondroitin 1,500 mg PO DAILY 03/20/24 03/20/24 History cholecalciferol (vitamin D3) 25 25 mcg PO DAILY 03/20/24 03/20/24 History mcg (1,000 unit) capsule (Vitamin D3) cholestyramine (with sugar) 4 gram 4 g PO DAILY 03/20/24 03/20/24 History powder for susp in a packet (Questran) duloxetine 20 mg capsule,delayed 20 mg PO DAILY 03/20/24 03/20/24 History release (Cymbalta) Allergies Allergy/AdvReac Type Severity Reaction Status Date / Time No Known Allergies Allergy Verified 03/31/24 06:40 Vital Signs Vital Signs - 24 hr 03/31/24 06:44 Temperature 96.8 F L Pulse Rate 83 Respiratory Rate 18 Blood Pressure 101/64 Pulse Oximetry 99 Oxygen Delivery Room Air Exam Const: General: comfortable and no acute distress HENMT: Face/Nose/Sinus: Normal nares present Eyes: General: appearance normal, both eyes and all related s
[2024-03-31 08:15] VITALS: BP 94/43; PULSE 59; RESP 24; O2SAT 98
[2024-03-31 08:25] VITALS: BP 109/67; PULSE 66; RESP 20; O2SAT 100
[2024-03-31 08:35] VITALS: BP 109/61; PULSE 63; RESP 22; O2SAT 100
== END 2024-03-31 08:48 | disposition home or self-care (01) ==
PROVIDERS: PCP Family Medicine; Referring Provider Nurse Practitioner; Visit Provider Internal Medicine Gastroenterology
PROC: 0DJD8ZZ Inspection of Lower Intestinal Tract, Via Natural or Artificial Opening Endoscopic (ICD-10-PCS; CPT 45378; principal; 2024-03-31 08:00)
DX: Z12.11 Encounter for screening for malignant neoplasm of colon (principal); D12.5 Benign neoplasm of sigmoid colon; K64.8 Other hemorrhoids; K52.832 Lymphocytic colitis; K21.9 Gastro-esophageal reflux disease without esophagitis; F41.9 Anxiety disorder, unspecified; I48.91 Unspecified atrial fibrillation; I48.92 Unspecified atrial flutter; I25.10 Atherosclerotic heart disease of native coronary artery without angina pectoris; K52.9 Noninfective gastroenteritis and colitis, unspecified; E78.5 Hyperlipidemia, unspecified; M85.88 Other specified disorders of bone density and structure, other site; Z79.01 Long term (current) use of anticoagulants; Z98.890 Other specified postprocedural states; Z90.49 Acquired absence of other specified parts of digestive tract; Z86.79 Personal history of other diseases of the circulatory system; Z80.3 Family history of malignant neoplasm of breast; Z80.1 Family history of malignant neoplasm of trachea, bronchus and lung; Z82.49 Family history of ischemic heart disease and other diseases of the circulatory system
CPT/HCPCS: 45385; 45380; 88305; J2704; J7120